=== PATIENT | male | born 1975 | race Caucasian/White ===

== ENCOUNTER 2021-05-13 08:20 | Inpatient (IN) | payer OTHER ==
[~2021-05-13] VITALS: Ht 182.9 cm; Wt 76.2 kg
[2021-05-13 08:41] VITALS: BP 129/66
[2021-05-13 09:12] LABS: BE(vivo) -1.7 mmol/L (-2 to +3); HCO3 20.7 mmol/L (22.0-26.0); PCO2 29.7 mmHg (35.0-45.0); PO2 64.8 mmHg (80.0-100.0); pH 7.461 (7.360-7.450)
[2021-05-13 09:18] LABS: ABSOLUTE NEUTROPHILS 4.6 thou/uL (1.4-8.2); HEMATOCRIT 43.9 % (42.0-52.0); HEMOGLOBIN 15.7 gm/dL (14.0-18.0); LYMPHOCYTES 11.1 % (24.0-44.0); MCH 32.6 pg (26.0-34.0); MCHC 35.8 g/dL (28.0-37.0); MCV 91.2 fL (80.0-100.0); MONOCYTES 5.5 % (1.0-8.0); PLATELET COUNT 133 thou/uL (150-400); POLYS 82.4 % (36.0-66.0); RBC 4.81 mil/uL (4.50-6.00); RDW 13.6 % (10.5-14.5); WBC 5.6 thou/uL (4.0-11.0)
[2021-05-13 09:27] LABS: CALCIUM 7.8 mg/dL (8.5-10.1); CREATININE 1.3 mg/dL (0.7-1.3); POTASSIUM 3.6 mmol/L (3.5-5.1)
[2021-05-13 09:37] LABS: ALBUMIN 2.9 g/dL (3.4-5.0); TOTAL BILIRUBIN 0.6 mg/dL (0.2-1.0); TOTAL PROTEIN 6.5 g/dL (6.4-8.2)
[2021-05-13 10:07] LABS: PLATELET ESTIMATE NORMAL
[2021-05-13 12:04] LABS: URINE BILIRUBIN NEGATIVE (Negative); URINE BLOOD 2+ (Negative); URINE CLARITY CLEAR; URINE COLOR YELLOW; URINE GLUCOSE-RANDOM* NEGATIVE (Negative); URINE KETONES NEGATIVE (Negative); URINE LEUKOCYTES-REFLEX NEGATIVE (Negative); URINE NITRITE-REFLEX NEGATIVE (Negative); URINE PROTEIN (DIPSTICK) 2+ (Negative); URINE UROBILINOGEN 0.2 E.U./dl (0.2-1.0)
--- NOTE | 2021-05-13 12:10 | EKG ---
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
[2021-05-13 12:23] LABS: BACTERIA-REFLEX 1-9 Few /HPF (None Seen); CRYSTALS None Seen /LPF (None Seen); HYALINE CASTS 0-3 Few /LPF (None Seen); SQUAMOUS 0-3 Few /LPF (0-3); URINE RBC 1-2 Rare /HPF (NONE SEEN); URINE WBC-REFLEX 0-5 Rare /HPF (0-5)
[2021-05-13] MEDS ORDERED: NOHOMEMEDICATIONS (23:16)
[2021-05-14] VITALS (39 sets, daily range): BP systolic 104–153; BP diastolic 44–84
[2021-05-14 00:08] LABS: BE(vivo) -2.3 mmol/L (-2 to +3); HCO3 20.3 mmol/L (22.0-26.0); PCO2 29.9 mmHg (35.0-45.0); sO2 88.8 % (92.0-98.0)
[2021-05-14 00:09] LABS: PO2 51.9 mmHg (80.0-100.0)
--- NOTE | 2021-05-14 01:12 | NUR ---
ASSUMED CARE OF PATIENT AT 1900. PATIENT ON OPTIFLOW. STATED HE HAD A COUGH. ASSESSED AND MEDS PASSED. CALLED METAL SHEET ROLLER OPERATOR FOR ORDERS FOR COUGH AND ANXIETY. AT THIS POINT PATIENT STARTED TO BECOME INCREASINGLY TACHYPNIC, AND DESATTED INTO MID 80'S. ORDERS RECIEVED FOR ABG. PATIENT PLACED ON BIPAP BASED ON ABG RESULTS. DR LOGAN AND ANDRESSA HURTADO UPDATED, ORDERS RECIEVED FOR ICU STATUS. INFORMATION SYSTEMS CONSULTANT CONTACTED, AND ER CHARGE NURSE UPDATED. REPEAT ABG'S TO BE DRAWN. PATIENT'S UPDATED ON STATUS AND POC.
[2021-05-14 01:31] LABS: BE(vivo) -2.5 mmol/L (-2 to +3); HCO3 19.9 mmol/L (22.0-26.0); PCO2 28.6 mmHg (35.0-45.0); sO2 95.8 % (92.0-98.0)
--- NOTE | 2021-05-14 03:23 | NUR ---
PT ADMITTED TO ICU ROM ER AT 0230. PT TESTED POSITIVE FOR COVID 05/13/21. PT IS ON THE BIPAP WITH SETINGS 16/01 RATE 18 FIO2 100%. PULM IS AWARE. FAMILY WAS NOTIFIED WHEN PATIENT GOT TO THE ICU. PATIENT ALERT AND ORIENTED. STRONG NON PRODUCTIVE COUGH. CALLED ID FOR CONSULT.
[2021-05-14 05:27] LABS: HEMOGLOBIN 14.5 gm/dL (14.0-18.0); MCH 32.8 pg (26.0-34.0); MCHC 36.4 g/dL (28.0-37.0); MCV 90.1 fL (80.0-100.0); RBC 4.44 mil/uL (4.50-6.00); RDW 13.8 % (10.5-14.5)
[2021-05-14 05:52] LABS: BE(vivo) -0.3 mmol/L (-2 to +3); HCO3 22.5 mmol/L (22.0-26.0); PO2 60.9 mmHg (80.0-100.0); pH 7.465 (7.360-7.450); sO2 92.9 % (92.0-98.0)
[2021-05-14 05:54] LABS: ALBUMIN 2.4 g/dL (3.4-5.0); CALCIUM 7.6 mg/dL (8.5-10.1); CREATININE 1.1 mg/dL (0.7-1.3); TOTAL BILIRUBIN 0.4 mg/dL (0.2-1.0)
--- NOTE | 2021-05-14 13:48 | NUR ---
PT ARRIVED FROM THE ER DURING GAS EXAMINER, AT THE TIME OF RN's FIRST ARRIVAL PT WAS SATTING NEAR 90s ON THE BIPAP MACHINE AT 100% RN LATER DISCUSSED AND GAVE TEACHING ON GOALS OF CARE/PLAN OF CARE FOR THE PATIENT, PT VERBALIZED AGREEMENT W/ ENTHUSIASM TO PARTICIPATE MUCH TOLERATED. MEDICATION/GOALS OF CARE EDUCATION GIVEN TO PATIENT AND HIS WHO HAD CALLED. PT HAS BEEN TAUGHT TO PRONE AND WAS PRONING FROM 0800 TO 1200 AND WAS SATTING AT 99-100% IMMEDIATELY. WHEN PATIENT IS LYING ON HIS BACK PT'S O2 SAT IS CLOSER TO 90-92% CENTRAL LINE CATHETER AWAITING PLACEMENT FOR THE PATIENT. PT'S HAD WANTED TO DROP OFF PICTURES/ITEMS FOR THE PATIENT. RN PICKED IT UP FROM THE ER AND SENT IT OVER. ALL BELONGINGS ARE NOW WITH THE PATIENT,. NO COMPLAINTS FROM THE PT, PT TO PRONE BACK TO POSITION ONCE CENTRAL LINE INSERTION PROCEDURE IS COMPLETED.
--- NOTE | 2021-05-14 16:15 | NUR ---
CL PLACED FOR COVID+
[2021-05-15] VITALS (60 sets, daily range): BP systolic 87–151; BP diastolic 33–82
[2021-05-15 00:05] LABS: HIV ANTIBODY Non Reactive (Non Reactive)
[2021-05-15 05:19] LABS: ABSOLUTE NEUTROPHILS 6.6 thou/uL (1.4-8.2); BASOPHILS 0.1 % (0.0-2.0); HEMATOCRIT 38.8 % (42.0-52.0); HEMOGLOBIN 13.8 gm/dL (14.0-18.0); LYMPHOCYTES 9.1 % (24.0-44.0); MCH 32.6 pg (26.0-34.0); MCHC 35.6 g/dL (28.0-37.0); MCV 91.7 fL (80.0-100.0); MONOCYTES 9.1 % (1.0-8.0); PLATELET COUNT 229 thou/uL (150-400); POLYS 81.7 % (36.0-66.0); RBC 4.23 mil/uL (4.50-6.00); RDW 13.6 % (10.5-14.5); WBC 8.1 thou/uL (4.0-11.0)
[2021-05-15 05:26] LABS: BE(vivo) -0.3 mmol/L (-2 to +3); HCO3 22.4 mmol/L (22.0-26.0); PCO2 31.5 mmHg (35.0-45.0); PO2 88.7 mmHg (80.0-100.0); sO2 97.3 % (92.0-98.0)
[2021-05-15 05:26] LABS: ALBUMIN 2.2 g/dL (3.4-5.0); ANION GAP 8 mmol/L (7-16); BUN 22 mg/dL (7-18); CALCIUM 7.6 mg/dL (8.5-10.1); CHLORIDE 106 mmol/L (98-107); CO2 26 mmol/L (21-32); CREATININE 0.9 mg/dL (0.7-1.3); DIRECT BILIRUBIN < 0.1 mg/dL (<0.1-0.2); GLUCOSE 149 mg/dL (74-106); PHOSPHORUS 2.5 mg/dL (2.5-4.9); POTASSIUM 4.3 mmol/L (3.5-5.1); SGOT 72 U/L (15-37); SGPT 40 U/L (30-65); SODIUM 140 mmol/L (136-145); TOTAL BILIRUBIN 0.3 mg/dL (0.2-1.0); TOTAL PROTEIN 5.5 g/dL (6.4-8.2)
--- NOTE | 2021-05-15 05:42 | NUR ---
PT FIO2 DROPPED TO 90% AROUND 0200. PAIENT SELF PRONING AND DOING A GOOD JOB OF THAT. WILL CONTINUE TO WEAN OXYGEN TOLERATED.
--- NOTE | 2021-05-15 17:03 | NUR ---
PT ADMITTED RELATED TO COVID AND HYPOXIA. CM REVIEWED CHART AND SPOKE WITH CARE TEAM. CM CALLED AND SPOKE WITH PT'S SPOUSE DESMOND BETTS. SHE INDICATED THAT THEY RESIDE IN A HOUSE WITH 1-2 STEPS TO ENTER AND NONE INSIDE. 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 SHE INDICATED THAT PT RECENTLY MOVED HERE FROM [place]. SHE INDICATED THAT PT PROBABLY HASN'T SEEN A PHYSICIAN IN 10 YRS. PT IS A VET BUT NOT SERVICE CONNECTED. SPOUSE INDICATED THAT PT'S ISN'T EMPLOYED IN THE COMMUNITY AT THIS TIME PT IS PATIENT PAY. PT IS ON BIPAP AT 90% PRONING. PT AND SPOUSE ARE FACETIMING. CM FOLLOWING REGARDING DC PLANNING.
--- NOTE | 2021-05-15 18:29 | NUR ---
PT IS PROGRESSING TOWARDS DISCHARGE AT THIS TIME AEB, BETTER APPEARANCE OVERALL, PT REMAINS STRONG AND ABLE TO TURN SELF FROM STOMACH TO THE R SIDE. PT INSTRUCTED BY RN TO LAY ON R SIDE WHEN NOT PRONING TO OPTIMIZE DELIVERY OF OXYGEN. PT IS TOLERATING PO ENSURE AND IS ABLE TO WITHSTAND BEING OFF THE BIPAP <45 SEC TO DRINK THE ROUTINE ENSURE FOR NUTRITION AND WIPE THE FACE DOWN. CALLED TWICE THIS SHIFT, RN PROVIDED UPDATE, VERBALIZED GRATITUDE. PT STATED CONTENT WITH CARE BEING PROVIDED, HOPEFUL PT CAN CONTINUE TO DECREASE IN BIPAP SETTINGS FROM HERE
[2021-05-16] VITALS (73 sets, daily range): BP systolic 114–159; BP diastolic 51–90
[2021-05-16 05:18] LABS: ABSOLUTE NEUTROPHILS 8.4 thou/uL (1.4-8.2); BASOPHILS 0.4 % (0.0-2.0); HEMATOCRIT 39.5 % (42.0-52.0); HEMOGLOBIN 14.1 gm/dL (14.0-18.0); LYMPHOCYTES 7.7 % (24.0-44.0); MCHC 35.7 g/dL (28.0-37.0); MCV 92.4 fL (80.0-100.0); PLATELET COUNT 215 thou/uL (150-400); POLYS 81.9 % (36.0-66.0); RBC 4.27 mil/uL (4.50-6.00); RDW 13.6 % (10.5-14.5); WBC 10.3 thou/uL (4.0-11.0)
[2021-05-16 05:33] LABS: ALBUMIN 2.3 g/dL (3.4-5.0); CALCIUM 7.6 mg/dL (8.5-10.1); CREATININE 0.9 mg/dL (0.7-1.3); DIRECT BILIRUBIN 0.2 mg/dL (<0.1-0.2); PHOSPHORUS 3.3 mg/dL (2.5-4.9); POTASSIUM 4.3 mmol/L (3.5-5.1); TOTAL BILIRUBIN 0.6 mg/dL (0.2-1.0); TOTAL PROTEIN 5.6 g/dL (6.4-8.2)
--- NOTE | 2021-05-16 14:06 | NUR ---
SPOKE WITH PATIENT , FADUMO, TODAY VIA TELEPHONE. DISCUSSED WAYS TO SUPPORT PATIENT VIRTUALLY BY CALLING ON FACETIME AT LEAST 1X PER DAY AND PROVIDE ENCOURAGEMENT AND SUPPORT.
--- NOTE | 2021-05-16 15:46 | NUR ---
DIET CHANGED TO NPO EXCEPT FOR SIP W/ BARICITINIB PER DR. DAMON. PO FLUIDS REMOVED FROM BEDSIDE TABLE. POC DISCUSSED WITH PT, TPN STARTED. WHEN REMOVING BIPAP MASK FOR <30 SEC, PT DESATURATES TO ~60% SPO2.
--- NOTE | 2021-05-16 17:06 | NUR ---
CM REVIEWED CHART AND SPOKE WITH NURSE. PT'S CARE DISCUSSED DURING ICU ROUNDS THIS DAY. CARE TEAM INDICATED PT CONTINUES ON BIPAP. PT WAS INITIATED ON TPM THIS AFTERNOON. CM FOLLOWING.
[2021-05-17] VITALS (41 sets, daily range): BP systolic 117–155; BP diastolic 60–105
--- NOTE | 2021-05-17 05:49 | NUR ---
ASSESSMENTS CHARTED, MEDS CHARTED GIVEN. PATIENT UNABLE TO LAY PRONE DUE TO PAIN, ALTERNATING LAYING SIDE TO SIDE. PATIENT ABLE TO REPOSITION HIMSELF. ON BIPAP DURING SHIFT. PATIENT NPO, TPN BEING GIVEN AND PO MEDS CHANGED TO IV SO PATIENT KEEPS THE BIPAP IN PLACE. PLAN OF CARE TO CONTINUE TREATMENTS.
[2021-05-17 06:42] LABS: HEMATOCRIT 40.6 % (42.0-52.0); HEMOGLOBIN 14.1 gm/dL (14.0-18.0); MCH 32.1 pg (26.0-34.0); MCHC 34.8 g/dL (28.0-37.0); MCV 92.1 fL (80.0-100.0); RBC 4.41 mil/uL (4.50-6.00); RDW 13.5 % (10.5-14.5); WBC 14.7 thou/uL (4.0-11.0)
[2021-05-17 07:02] LABS: ALBUMIN 2.3 g/dL (3.4-5.0); CALCIUM 7.7 mg/dL (8.5-10.1); CREATININE 0.8 mg/dL (0.7-1.3); DIRECT BILIRUBIN 0.2 mg/dL (<0.1-0.2); PHOSPHORUS 3.6 mg/dL (2.5-4.9); POTASSIUM 4.4 mmol/L (3.5-5.1); TOTAL BILIRUBIN 0.7 mg/dL (0.2-1.0); TOTAL PROTEIN 5.7 g/dL (6.4-8.2)
--- NOTE | 2021-05-17 13:47 | NUR ---
RN SPOKE WIH PT SPOUSE THIS MORNING. PT SPOUSE STATED THAT PT WOULD LIKE TO MOVE AROUND AND NOT USE A BEDPAN AGAIN. RN SPOKE WITH PT AND DISSCUSSED THESE CONCERNS. PT WAS COOPERATIVE AND WE DECIDED ON A PLAN. RN AND RT SAT PT UP TO SIDE OF THE BED. PT THEN WANTED TO STAND, PT STOOD AND WAS A LITTLE WOBBLY. ASIST X 1 FOR STANDING. RN GOT PT A BEDSIDE COMMODE.
[2021-05-17 14:10] LABS: T-SPOT.TB Negative
[2021-05-17 18:30] LABS: HEMATOCRIT 42.4 % (42.0-52.0); HEMOGLOBIN 14.9 gm/dL (14.0-18.0); RBC 4.6 mil/uL (4.50-6.00); WBC 21.3 thou/uL (4.0-11.0)
[2021-05-17 20:46] LABS: MCH 32.3 pg (26.0-34.0); MCHC 35.1 g/dL (28.0-37.0); MCV 92.1 fL (80.0-100.0); RDW 13.2 % (10.5-14.5)
[2021-05-17 21:16] LABS: BE(vivo) 3.7 mmol/L (-2 to +3); HCO3 26.9 mmol/L (22.0-26.0); PCO2 36.3 mmHg (35.0-45.0); PO2 73.8 mmHg (80.0-100.0); pH 7.488 (7.360-7.450); sO2 95.9 % (92.0-98.0)
[2021-05-18] VITALS (45 sets, daily range): BP systolic 81–189; BP diastolic 45–121
[2021-05-18 03:34] LABS: HEMATOCRIT 41.5 % (42.0-52.0); HEMOGLOBIN 14.5 gm/dL (14.0-18.0); MCH 32.3 pg (26.0-34.0); MCHC 34.9 g/dL (28.0-37.0); MCV 92.6 fL (80.0-100.0); RBC 4.49 mil/uL (4.50-6.00); WBC 19.4 thou/uL (4.0-11.0)
[2021-05-18 03:43] LABS: CREATININE 0.9 mg/dL (0.7-1.3); POTASSIUM 4.4 mmol/L (3.5-5.1)
[2021-05-18 07:59] LABS: ALBUMIN 2.3 g/dL (3.4-5.0); CALCIUM 7.9 mg/dL (8.5-10.1); DIRECT BILIRUBIN 0.3 mg/dL (<0.1-0.2); PHOSPHORUS 4.1 mg/dL (2.6-4.7); TOTAL BILIRUBIN 0.9 mg/dL (0.2-1.0)
--- NOTE | 2021-05-18 12:15 | NUR ---
VERY LONG D/W FADUMO HATFILED, (30 MINUTES). ALLOWED TO VERBALIZE FRUSTRATIONS/FEARS. D/W HER WHAT HER EXPECTATIONS RE:PT/PROGNISIS WAS. LONG D/W HER RE:POC, PT NOT HAVING RESERVE,TAKING LONGER TIMES TO RECOVER W ANY MOVEMENT OR ADL ATTEMPTED.SHE STATES THAT THE SATURDAY THAT PT WAS ADMITTED, p taking a shower, his pulse ox was .78%. 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 STATED PT TAKES 0.5-1MG XANAX DAILY & PRN. SHE FELT HE WAS PANICKING THIS AM WHEN FACETIMING W PT.PT'S MOM IS CO VID + IN AN ICU IN [place], NOT DOING WELL.--VW
--- NOTE | 2021-05-18 13:57 | NUR ---
just off the phone w pt's philip (time spent ~8 minutes). in to see pt earlier,told pt he needed to be intubated (satting ~83-86% at rest). pt refusing intubation. asked to call earlier & stated he would d/w pt first & call p intubation. now in procedure w another pt. very frustrated & upset.tried to calm fears,answer ?'s.--vw
--- NOTE | 2021-05-18 15:04 | NUR ---
RN SPOKE WITH PT. PT STATED HE IS READY TO BE INTIBATED. PT IS ANXIOUS ABOUT INTIBATION BUT DID GIVE VERBAL CONSENT THAT IF APPROPRIATE HE IS OK WITH INTIBATION. RN CALLED DR LOGAN AT 1447, NO ANSWER. SENT DR LOGAN A MESSAGE STATING PT WAS READY FOR INTIBATION AND WOULD LIKE SOMETHING FOR ANXIETY BEFORE HE GETS INTIBATED. RN WILL CONTINUE TO MONITOR.
--- NOTE | 2021-05-18 16:45 | NUR ---
PT HAD BEEN ON BIPAP AT 100% AND WAS INTUBATED LATE THIS AFTERNOON. A KUB WAS ALSO ORDERED. CM FOLLOWING.
--- NOTE | 2021-05-18 18:24 | NUR ---
PT INTUBATED AT 1530. DR LOGAN INTUBATED PT. SUCCESSFUL INTUBATION. RN WENT TO PLACE OG TUBE FOR XR. COMPLICATIONS PLACING OG TUBE, REQUIRED REINTUBATION. PT SEDATED AND INTUBATED AND SATTING 93%. ANTONIO CATHETER WAS PLACED. PT SPOUSE WAS UPDATED ON PT CONDITION. WAS VERY POLITE AND RECEPTIVE TO PATIENT CARE. WILL CONTINUE TO MONITOR AND FOLLOW PLAN OF CARE
[2021-05-18 21:04] LABS: BE(vivo) 0.8 mmol/L (-2 to +3); HCO3 27.4 mmol/L (22.0-26.0); PCO2 50.7 mmHg (35.0-45.0); PO2 121.3 mmHg (80.0-100.0); pH 7.351 (7.360-7.450); sO2 98.2 % (92.0-98.0)
[2021-05-19] VITALS (89 sets, daily range): BP systolic 95–133; BP diastolic 49–83
[2021-05-19 04:24] LABS: BE(vivo) -0.9 mmol/L (-2 to +3); HCO3 28.3 mmol/L (22.0-26.0); PO2 157.8 mmHg (80.0-100.0); sO2 98.7 % (92.0-98.0)
[2021-05-19 04:25] LABS: PCO2 66.5 mmHg (35.0-45.0); pH 7.247 (7.360-7.450)
[2021-05-19 06:06] LABS: HEMATOCRIT 43.7 % (42.0-52.0); MCH 32.5 pg (26.0-34.0); MCHC 34.3 g/dL (28.0-37.0); MCV 94.9 fL (80.0-100.0); RDW 13.5 % (10.5-14.5); WBC 19.9 thou/uL (4.0-11.0)
[2021-05-19 06:36] LABS: ALBUMIN 2.2 g/dL (3.4-5.0); CALCIUM 7.7 mg/dL (8.5-10.1); CREATININE 1.1 mg/dL (0.7-1.3); DIRECT BILIRUBIN 0.4 mg/dL (<0.1-0.2); POTASSIUM 5.8 mmol/L (3.5-5.1); TOTAL BILIRUBIN 0.7 mg/dL (0.2-1.0); TOTAL PROTEIN 6.5 g/dL (6.4-8.2)
[2021-05-19 06:44] LABS: APTT 50.4 Seconds (24.5-32.8); D-DIMER > 35.20 ug/mLFEU (0.19-0.50)
[2021-05-19 10:23] LABS: ABSOLUTE NEUTROPHILS 17.7 thou/uL (1.4-8.2)
[2021-05-19 10:25] LABS: PLATELET COUNT 78 thou/uL (150-400)
[2021-05-19 12:07] LABS: ATYPICAL LYMPHS 0 %
--- NOTE | 2021-05-19 15:15 | NUR ---
Case discussed with the care team. No weekend dc anticipated. Pt is intubated and sedated FiO2 60% PEEP of 12. PT had been on TPN but is now changing to tube feeds. Dc planning needs uncertain at this time. Nursing updating his . Will follow.
--- NOTE | 2021-05-19 19:47 | NUR ---
PT FS 200. MD DESMOND STATES TO ORDER SLIDING SCALE MD WILL ORDER.
[2021-05-20] VITALS (91 sets, daily range): BP systolic 95–126; BP diastolic 55–72
[2021-05-20 01:49] LABS: ABSOLUTE NEUTROPHILS 18.6 thou/uL (1.4-8.2); BASOPHILS 0.3 % (0.0-2.0); HEMATOCRIT 41.7 % (42.0-52.0); HEMOGLOBIN 14.1 gm/dL (14.0-18.0); LYMPHOCYTES 1.4 % (24.0-44.0); MCH 32.2 pg (26.0-34.0); MCHC 33.7 g/dL (28.0-37.0); MCV 95.6 fL (80.0-100.0); MONOCYTES 6.1 % (1.0-8.0); PLATELET COUNT 43 thou/uL (150-400); POLYS 92.2 % (36.0-66.0); RBC 4.37 mil/uL (4.50-6.00); RDW 13.6 % (10.5-14.5); WBC 21.3 thou/uL (4.0-11.0)
[2021-05-20 01:53] LABS: CALCIUM 7.6 mg/dL (8.5-10.1); CREATININE 1.6 mg/dL (0.7-1.3); DIRECT BILIRUBIN 0.4 mg/dL (<0.1-0.2); PHOSPHORUS 5.3 mg/dL (2.6-4.7); TOTAL BILIRUBIN 0.7 mg/dL (0.2-1.0); TOTAL PROTEIN 6.1 g/dL (6.4-8.2)
[2021-05-20 02:03] LABS: POTASSIUM 6.2 mmol/L (3.5-5.1)
[2021-05-20 04:10] LABS: BE(vivo) 1.6 mmol/L (-2 to +3); HCO3 31.4 mmol/L (22.0-26.0); PO2 91.6 mmHg (80.0-100.0); sO2 95.3 % (92.0-98.0)
[2021-05-20 04:11] LABS: PCO2 74.8 mmHg (35.0-45.0); pH 7.241 (7.360-7.450)
--- NOTE | 2021-05-20 05:20 | NUR ---
05/19/21, 1900: Assumed pt care. Pt sedated/intubated. 05/19/21, 0: pharmacy called this RN to titrate argatroban to 0.6mcg/kg/min following appt results 05/20/21, 0000: pt saturating above 80s. RT notified of pt's spo2 level. RT called provider and orders received. vent setting changed to pressure control of 30 and peep of 14. pt's saturation level improved after intervention 0202: critical potassium results received - CRUISE COORDINATOR notified of critical lab results.
[2021-05-20 21:46] LABS: CALCIUM 7.8 mg/dL (8.5-10.1)
[2021-05-20 21:53] LABS: POTASSIUM 6.2 mmol/L (3.5-5.1)
[2021-05-21] VITALS (81 sets, daily range): BP systolic 100–138; BP diastolic 49–84
[2021-05-21 04:52] LABS: HEMATOCRIT 39.8 % (42.0-52.0); HEMOGLOBIN 13.1 gm/dL (14.0-18.0); MCH 31.8 pg (26.0-34.0); MCHC 32.8 g/dL (28.0-37.0); MCV 96.9 fL (80.0-100.0); RBC 4.11 mil/uL (4.50-6.00); RDW 13.8 % (10.5-14.5); WBC 14.5 thou/uL (4.0-11.0)
[2021-05-21 05:17] LABS: ALBUMIN 1.9 g/dL (3.4-5.0); CALCIUM 7.5 mg/dL (8.5-10.1); DIRECT BILIRUBIN 0.3 mg/dL (<0.1-0.2); PHOSPHORUS 4.4 mg/dL (2.6-4.7); POTASSIUM 5.5 mmol/L (3.5-5.1); TOTAL BILIRUBIN 0.5 mg/dL (0.2-1.0); TOTAL PROTEIN 6.1 g/dL (6.4-8.2)
--- NOTE | 2021-05-21 06:02 | NUR ---
Pt is not progressing towards plan of care as evidenced by continued dependence on vent for oxygen support. Pt tolerated titration of propofol and fent to lower rates
[2021-05-21 11:33] LABS: HEMATOCRIT 37.6 % (42.0-52.0); HEMOGLOBIN 12.5 gm/dL (14.0-18.0); MCH 32.4 pg (26.0-34.0); MCHC 33.1 g/dL (28.0-37.0); MCV 97.6 fL (80.0-100.0); RBC 3.85 mil/uL (4.50-6.00); RDW 13.8 % (10.5-14.5); WBC 17.5 thou/uL (4.0-11.0)
[2021-05-21 13:06] LABS: ABSOLUTE NEUTROPHILS 15.8 thou/uL (1.4-8.2)
[2021-05-21 13:07] LABS: ANISOCYTOSIS SLIGHT
[2021-05-21 13:10] LABS: PLATELET COUNT 151 thou/uL (150-400)
[2021-05-21 17:45] LABS: CALCIUM 7.6 mg/dL (8.5-10.1); CREATININE 1.8 mg/dL (0.7-1.3); POTASSIUM 5.6 mmol/L (3.5-5.1)
[2021-05-22] VITALS (24 sets, daily range): BP systolic 96–130; BP diastolic 64–78
[2021-05-22 04:55] LABS: ALBUMIN 1.9 g/dL (3.4-5.0); CALCIUM 7.8 mg/dL (8.5-10.1); CREATININE 1.7 mg/dL (0.7-1.3); DIRECT BILIRUBIN 0.3 mg/dL (<0.1-0.2); PHOSPHORUS 2.9 mg/dL (2.5-4.9); POTASSIUM 5.1 mmol/L (3.5-5.1); TOTAL BILIRUBIN 0.6 mg/dL (0.2-1.0)
[2021-05-22 05:08] LABS: HEMATOCRIT 38.8 % (42.0-52.0); HEMOGLOBIN 12.9 gm/dL (14.0-18.0); MCH 32.3 pg (26.0-34.0); MCHC 33.3 g/dL (28.0-37.0); MCV 96.8 fL (80.0-100.0); RDW 13.4 % (10.5-14.5); WBC 20.7 thou/uL (4.0-11.0)
--- NOTE | 2021-05-22 07:12 | NUR ---
No progress toward goals at this time, though pt remains stable. Remains on FiO2 70%, PC 30, AC 22, peep 14. O2 sat remains > 90%. No fever, though WBC count this a.m. is up to 20.7. Pt still screens negative for sepsis. Lungs remain coarse, suctioning small amounts of thick blood tinged, gongora sputum. Skin integrity remains intact except for small dry skin tear by RAC.
--- NOTE | 2021-05-22 13:43 | NUR ---
Cm reviewed chart and spoke with Nurse this day. Pt's care was discussed druing ICU rounds this day. Care team indicated that pt continues on Dexamethasone, Remdesivir complete, baricitinib Vancomycin, Azithromycin, Cefepime, Valtrex Pt is sedated and intubated. Fi02 70%/PEEP 14. Pt started on Levophed. Pt's spouse Breanna called cm this day and express frustration with the length of time she has been on hold to touch base with the nurses in the recent past at most up to 38 mins. She indicated she had only spoken to a doctor once since his admission. Luis Fernando indicated that luis fernando would ask if hospitalist will call and provide her an update this day. Luis Fernando spoke with Dr. Escudero and he stated he would call her after her visited pt this afternoon. Cm following.
--- NOTE | 2021-05-22 14:15 | NUR ---
PT HR IN 120S. DR BETANCOURT NOTIFIED AT BEDSIDE OF INCREAING HR. DR BETANCOURT ORDER ECG. ECG STATED SINUS TACH. RN INFORMED DR BETANCOURT ABOUT ECG RESULTS. PT SATTING 90% AND BP 96/72. PT SEDATED AND INTUBATED. WILL CONTINUE TO [facility] AND FOLLOW PLAN OF CARE.
--- NOTE | 2021-05-22 15:34 | EKG ---
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: PEYMAN : 1975 Requested By: Jimmy Escudero Order Number: [id number] MD: Tod Hood Measurements Intervals [place] Rate: 117 P: 46 KS: 132 QRS: 34 QRSD: 121 T: 37 QT: 330 QTc: 461 Interpretive Statements Sinus tachycardia IVCD, consider atypical RBBB Nonspecific T abnormalities, lateral leads Compared to ECG 05/13/2021 08:49:47 T-wave abnormality now present Electronically Signed On 05-22-2021 15:34:27 ALLEY WORKER by Tod Hood [email or web address] <ELECTRONICALLY SIGNED> By: Tod Hood MD, [facility] 05/22/21 1534 1347 1347 Tod Hood MD, FAC /EPI
[2021-05-23] VITALS (24 sets, daily range): BP systolic 101–128; BP diastolic 57–76
[2021-05-23 03:44] LABS: HEMATOCRIT 35.3 % (42.0-52.0); HEMOGLOBIN 11.5 gm/dL (14.0-18.0); MCHC 32.7 g/dL (28.0-37.0); MCV 97.7 fL (80.0-100.0); RBC 3.61 mil/uL (4.50-6.00); RDW 13.8 % (10.5-14.5); WBC 20.5 thou/uL (4.0-11.0)
[2021-05-23 03:54] LABS: CALCIUM 7.8 mg/dL (8.5-10.1); CREATININE 1.7 mg/dL (0.7-1.3); POTASSIUM 5.3 mmol/L (3.5-5.1)
--- NOTE | 2021-05-23 16:02 | NUR ---
Cm reviewed chart and spoke with nurse. Pt's care was discussed during ICU rounds this day. Pt remains sedated on vent fio2 at 80% peep of 14. Pt's tube feeding was changed to nepro. Luis Fernando had asked Dr. Escudero to reach out to pt's spouse Breanna yesterday. Cm following.
--- NOTE | 2021-05-23 18:05 | NUR ---
PT PROGRESSING TOWARD POC AEB LIS VIAL SIGNS AND MAINTAININ OXGENATON. PT ON 80% FIO2 AND 14 OF PEEP. PT ON 100 OF FENTAYL, 6 O VERSED, AND 20 OF PROPOFOL FOR SEDATION. P WAS ABLE TO FACEIME PT AND SPEAK TO HIM.
[2021-05-24] VITALS (24 sets, daily range): BP systolic 111–139; BP diastolic 61–77
[2021-05-24 02:00] LABS: CREATININE 1.6 mg/dL (0.7-1.3); POTASSIUM 5.6 mmol/L (3.5-5.1)
[2021-05-24 15:30] LABS: BE(vivo) -2.5 mmol/L (-2 to +3); PCO2 48.3 mmHg (35.0-45.0); PO2 80.9 mmHg (80.0-100.0); pH 7.314 (7.360-7.450); sO2 94.9 % (92.0-98.0)
[2021-05-25] VITALS (19 sets, daily range): BP systolic 103–145; BP diastolic 58–78
[2021-05-25 03:08] LABS: HEMATOCRIT 34.9 % (42.0-52.0); HEMOGLOBIN 11.7 gm/dL (14.0-18.0); MCH 32.6 pg (26.0-34.0); MCHC 33.4 g/dL (28.0-37.0); MCV 97.4 fL (80.0-100.0); RBC 3.58 mil/uL (4.50-6.00); RDW 13.5 % (10.5-14.5); WBC 17.4 thou/uL (4.0-11.0)
[2021-05-25 03:56] LABS: CREATININE 1.5 mg/dL (0.7-1.3); POTASSIUM 5.2 mmol/L (3.5-5.1)
--- NOTE | 2021-05-25 12:58 | NUR ---
NURSE ATEMPTED TO PRONE PATIENT PER ORDER. PT DID NOT TOLERATE PRONE ATTMEPT. DR ORDERED NIMBEX TO PARALYZE PATIENT. NURSE ADMINISTERED AND ATTEMPTED TO PRONE PATIENT AGAIN. PT STILL DID NOT TOLERATE PRONING EVIDENCE BY DESATURATION AND INCREASE RESPIRATORY RATE.
--- NOTE | 2021-05-25 14:22 | NUR ---
Cm reviewed chart and spoke with nurse. Pt's care discussed during icu rounds this day. It was indicated that pt continues on Dexamethasone, baricitinib day 13, Ceftriaxone, Valtrex. Pt remains sedated and ntubated. Fi02 65% PEEP 12. Planning on prone positioning today. Cm following.
[2021-05-26] VITALS (17 sets, daily range): BP systolic 102–148; BP diastolic 53–85
[2021-05-26 05:07] LABS: HEMATOCRIT 33.2 % (42.0-52.0); MCH 32.1 pg (26.0-34.0); MCHC 33.1 g/dL (28.0-37.0); MCV 96.9 fL (80.0-100.0); RBC 3.43 mil/uL (4.50-6.00); RDW 13.7 % (10.5-14.5); WBC 14.3 thou/uL (4.0-11.0)
[2021-05-26 08:42] LABS: ALBUMIN 1.7 g/dL (3.4-5.0); CALCIUM 8.8 mg/dL (8.5-10.1); CREATININE 1.5 mg/dL (0.7-1.3); PHOSPHORUS 3.7 mg/dL (2.5-4.9); POTASSIUM 4.9 mmol/L (3.5-5.1)
[2021-05-27] VITALS (27 sets, daily range): BP systolic 96–203; BP diastolic 56–104
[2021-05-27 05:41] LABS: HEMATOCRIT 33.2 % (42.0-52.0); HEMOGLOBIN 11.3 gm/dL (14.0-18.0); MCH 32.7 pg (26.0-34.0); MCHC 34.1 g/dL (28.0-37.0); MCV 95.9 fL (80.0-100.0); RBC 3.46 mil/uL (4.50-6.00); RDW 13.2 % (10.5-14.5); WBC 12.1 thou/uL (4.0-11.0)
--- NOTE | 2021-05-27 18:46 | NUR ---
PATIENT STARTED COUGH IN SEDATION WAS TURNED UP. WHEN SEDATION WAS TURNED UP 02 WENT DOWN AND RT WAS CALLED TO TURN UP 02. START TO TURN DOWN SEDATION. TALKED TO PATIENTS ON THE PHONE. PATIENT IS RESTING IN BED.
[2021-05-28] VITALS (24 sets, daily range): BP systolic 107–139; BP diastolic 59–79
[2021-05-28 04:37] LABS: CALCIUM 9.2 mg/dL (8.5-10.1); CREATININE 1.4 mg/dL (0.7-1.3); POTASSIUM 4.7 mmol/L (3.5-5.1)
[2021-05-29] VITALS (23 sets, daily range): BP systolic 102–165; BP diastolic 57–96
--- NOTE | 2021-05-29 06:46 | NUR ---
PATIETNT HAD UNEVENTFUL NIGHT. MAINTAINING 02 SATS 97-98% ALL NOC. PRECEDEX, FENTANYL, AND VERSED GTT. +COUGH/GAG, FOLLOWS SOME COMMANDS - SQUEEZES HAND. 02 SATs HIGH 90s ALL NOC. SR ON THE MONITOR. OGT WITH TUBE FEED AND HIGH RESID MAX WAS 225 CCs. WILL CONTINUE TO MONITOR AND FOLLOW POC .
--- NOTE | 2021-05-29 06:48 | NUR ---
SPOKE WITH SPOUSE THIS MORNING AND UPDATED ON PATIENT STATUS. ALL QUESTIONS WERE ANSWERED DURING THE CALL.
--- NOTE | 2021-05-29 19:10 | NUR ---
PT REPEATEDLY COUGHING, TEMP 102.7, TYLENOL GIVEN AND ICE PLACE, PT TACHYCARDIC 150. PT RULED IN FOR SEPSIS, DISCUSS THIS W/ MD LOGAN. SEDATION MAXED AND PHILIPPE CULTURED. PT OFF ISOLATION WITFE AT BEDSIDE. IS AMICABLE TO TRACH/PEG WHEN READY.
[2021-05-30] VITALS (11 sets, daily range): BP systolic 104–119; BP diastolic 58–75
[2021-05-30 05:04] LABS: ABSOLUTE NEUTROPHILS 16.9 thou/uL (1.4-8.2); BASOPHILS 0.1 % (0.0-2.0); EOSINOPHILS 0.1 % (0.0-3.0); HEMATOCRIT 31.3 % (42.0-52.0); HEMOGLOBIN 10.6 gm/dL (14.0-18.0); LYMPHOCYTES 4.1 % (24.0-44.0); MCH 32.4 pg (26.0-34.0); MCV 95.5 fL (80.0-100.0); MONOCYTES 2.6 % (1.0-8.0); PLATELET COUNT 178 thou/uL (150-400); POLYS 93.1 % (36.0-66.0); RBC 3.28 mil/uL (4.50-6.00); RDW 13.4 % (10.5-14.5); WBC 18.2 thou/uL (4.0-11.0)
[2021-05-30 05:10] LABS: ALBUMIN 1.7 g/dL (3.4-5.0); CALCIUM 8.4 mg/dL (8.5-10.1); CREATININE 1.5 mg/dL (0.7-1.3); TOTAL BILIRUBIN 0.7 mg/dL (0.2-1.0); TOTAL PROTEIN 6.2 g/dL (6.4-8.2)
--- NOTE | 2021-05-30 05:40 | NUR ---
PT PROGRESSING TOWARD PLAN OF CARE EVIDENCED BY DECREASED OXYGENA REQUIREMENTS. AT 1900, RT FOUND ETT HAD MOVED 5CM FROM ORIGINAL POSITION. DURING SHIFT REPORT, THIS RN WAS TOLD PATIENT WAS REQUIRING 100% FIO2. ONCE ETT WAS REPOSITIONED TO IT'S INITIAL POSITION, PATIENT'S O2 SAT INCREASED TO 100% ALLOWING THIS RN TO TITRATE OXYGEN DOWN OVERNOC. PATIENT'S FIO2 TITRATED TO 65% FROM 100%. PATIENT HAD BM DURING SHIFT. 02 SAT REMAINED IN MID-HIGH 90s THROUGHOUT SHIFT. PATIENT CONTINUES TO REQUIRE SEDATION WITHOUT RESTRAINT ORDER. ANTONIO OUTPUT TOTAL 1000 ML. PER ID ORDER, ABX IVPB STARTED. PATIENT AFREBILE THROUHGOUT SHIFT. WILL CONTINUE TO MONITOR AND FOLLOW POC.
[2021-05-30 09:19] LABS: HCO3 27.8 mmol/L (22.0-26.0); PCO2 48.5 mmHg (35.0-45.0); PO2 72.2 mmHg (80.0-100.0); pH 7.376 (7.360-7.450); sO2 94.1 % (92.0-98.0)
--- NOTE | 2021-05-30 15:19 | NUR ---
PTS HAS BEEN AT HIS BEDSIDE OFF AND ON THROUGHOUT THE DAY. I HAVE ANSWERED ALL QUESTIONS PER POC.
[2021-05-31] VITALS (17 sets, daily range): BP systolic 110–137; BP diastolic 62–91
--- NOTE | 2021-05-31 07:36 | NUR ---
PATIENT FOLLOWS SOME COMMANDS, OPEN EYES WITH STIMULATION, AND NOT RESTRAINED. PATIENT CONTINUES TO REQUIRE HIGH LEVEL OF SEDATION TO PREVENT MOVEMENT OF THE ETT AGAIN. PATIENT WILL COUGH AND GAG WHEN AWAKE BUT WILL CALM DOWN A LITTLE WHEN REASSURED HE'S OK. PATIENT HAD LARGE BM AT BEGINNING OF SHIFT. TUBE FEED TITRATED UP TO 60 FROM 40 WITH A GOAL OF 70. PLAN IS FOR TRACH/PEG WITH FI02 AT 60%, WHICH IS GOAL FOR PROCEDURE. WILL CONTIUNE TO MONITOR AND FOLLOW POC.
--- NOTE | 2021-05-31 13:55 | NUR ---
Cm reviwed chart and spoke with nurse. Pt's care discussed during ICU rounds this day. Pt continues on Dexamethasone, Levaquin, Merropenem, Vancomycin, and Valtrex. Pt remains sedated and intubated, but arousable. Fi02 60%/PEEP 12. Pt is uninsured and pt's spouse is over assets for medicaid. She had reported that pt is a but he isn't service connected. Cm following.
--- NOTE | 2021-05-31 18:42 | NUR ---
MARIO WAS IN TO VISIT, HE MOVED HIS HEAD LOOKED AT HER. SQUEEZED HER HAND. PATIENT HAS NOT HAD A TEMP TODAY. PATIENT IS RESTING IN BED WITH CALL FIGUEROA IN REACH.
[2021-06-01] VITALS (12 sets, daily range): BP systolic 96–121; BP diastolic 60–78
--- NOTE | 2021-06-01 07:42 | EKG ---
[address] [address] ELECTROCARDIOGRAM REPORT Name: JOHANNA ARELLANO Room #: 239-P ADM IN M.R.#: [id number] Admission: 05/13/21 Attend Phys: Rahat Alvarado MD Discharge: Date of : 75 Report #: [id number] 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
--- NOTE | 2021-06-01 15:42 | NUR ---
61 year old male remains on vent for COVID-19 Pneumonia at 90% FI02 and 12 of Peep. No anticipated CM needs at this time. CM to follow when moving closer to discharge needs being identified.
--- NOTE | 2021-06-01 18:28 | NUR ---
PATIENT HAS REST COMFORTABLE ALL DAY. WAS IN TO SEE HIM. PATIENT IS NPO AT MIDNIGHT. PATIENT HAD 2 SMALL BM THIS SHIFT. PATINET IS RESTING IN BED.
[2021-06-02] VITALS (24 sets, daily range): BP systolic 96–118; BP diastolic 60–75
[2021-06-02 04:35] LABS: ABSOLUTE NEUTROPHILS 11.5 thou/uL (1.4-8.2); BASOPHILS 0.4 % (0.0-2.0); EOSINOPHILS 0.2 % (0.0-3.0); HEMATOCRIT 32.3 % (42.0-52.0); LYMPHOCYTES 5.7 % (24.0-44.0); MCH 32.1 pg (26.0-34.0); MCHC 34.1 g/dL (28.0-37.0); MCV 94.2 fL (80.0-100.0); MONOCYTES 3.9 % (1.0-8.0); PLATELET COUNT 158 thou/uL (150-400); POLYS 89.8 % (36.0-66.0); RBC 3.43 mil/uL (4.50-6.00); RDW 13.7 % (10.5-14.5); WBC 12.7 thou/uL (4.0-11.0)
[2021-06-02 04:36] LABS: BE(vivo) 7.1 mmol/L (-2 to +3); HCO3 31.8 mmol/L (22.0-26.0); PCO2 45.4 mmHg (35.0-45.0); PO2 62.9 mmHg (80.0-100.0); pH 7.463 (7.360-7.450); sO2 93.1 % (92.0-98.0)
[2021-06-02 05:08] LABS: CALCIUM 8.5 mg/dL (8.5-10.1); CREATININE 1.2 mg/dL (0.7-1.3); POTASSIUM 4.2 mmol/L (3.5-5.1); TOTAL BILIRUBIN 0.7 mg/dL (0.2-1.0); TOTAL PROTEIN 6.7 g/dL (6.4-8.2)
--- NOTE | 2021-06-02 08:42 | NUR ---
ASSUMED CARE OF PT AT [address] MALDONADO AT 0730 AND HE SAID HE IS CALLING ANESTHESIA TO SEE IF THEY CAN GET THE PT ON THE SCHEDULE TODAY FOR A TRACH AND PEG. DR. CHIRINOS AT BEDSIDE AT 0815, HE WANTS THE WATER FLUSHES DECREASED TO 100 BID
[2021-06-03] VITALS (24 sets, daily range): BP systolic 89–130; BP diastolic 58–83
--- NOTE | 2021-06-03 05:47 | NUR ---
NO SIGNIFICANT CHANGES DURING THE NIGHT. PT REMAINS SEDATED WITH PRECEDEX, FENTANYL, AND VERSED. FENTANYL DRIP INCREASED THIS MORNING, PT AWAKENED SPONTANEOUSLY AND WAS BECOMING RESTLESS IN THE BED. SPO2> 92% ON VENT WITH 50% FIO2. ANTONIO TO DD WITH GOOD URINE OUTPUT. MODERATE AMOUNT LOOSE STOOL NOTED IN FMS. TF VIA OGT. DECREASED TF RATE PT HAD RESIDUALS OF 100-200ML THIS SHIFT. NOT PROGRESSING WELL TOWARD POC GOALS. WILL MONITOR FURTHER.
--- NOTE | 2021-06-03 17:12 | NUR ---
1705: RN PAGED DR. LOGAN AT THIS TIME DUE TO INCREASED AGITATION AND ANXIETY. 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 PT ABLE TO NOD/SHAKE HEAD APPROPRIATELY, DENIES PAIN BUT ENDORSES ANXIETY. PT ALREADY MAXED ON DOSES OF FENTANYL, VERSED, AND PRECEDEX GTTS. DR. LOGAN TO PLACE ORDER FOR PROPOFOL.
--- NOTE | 2021-06-03 18:40 | NUR ---
PT CONTINUES TO PROGRESS ON PLAN OF CARE. PT CONTINUES ON CURRENT VENT SETTINGS WITHOUT CHANGE THIS SHIFT. PLAN FOR TRACH/PEG PLACEMENT SATURDAY. PT'S SPOUSE AT BEDSIDE MAJORITY OF AFTERNOON AND ABLE TO VERBALIZE UNDERSTANDING OF POC.
[2021-06-04] VITALS (25 sets, daily range): BP systolic 95–117; BP diastolic 56–73
[2021-06-04 04:33] LABS: BE(vivo) 7.7 mmol/L (-2 to +3); HCO3 31.6 mmol/L (22.0-26.0); PCO2 41.5 mmHg (35.0-45.0); PO2 72.2 mmHg (80.0-100.0); pH 7.499 (7.360-7.450); sO2 95.7 % (92.0-98.0)
--- NOTE | 2021-06-04 06:00 | NUR ---
VSS REMAINS INTUBATED AND SEDATED. PLAN FOR TRACH AND PEG ON MODAY AT 1300 PROGRESSIJNG TOWARD GOALS.
[2021-06-04 08:39] LABS: ABSOLUTE NEUTROPHILS 13.8 thou/uL (1.4-8.2); BASOPHILS 0.5 % (0.0-2.0); EOSINOPHILS 0.2 % (0.0-3.0); HEMATOCRIT 32.8 % (42.0-52.0); HEMOGLOBIN 11.4 gm/dL (14.0-18.0); MCH 32.8 pg (26.0-34.0); MCHC 34.7 g/dL (28.0-37.0); MCV 94.7 fL (80.0-100.0); MONOCYTES 3.2 % (1.0-8.0); PLATELET COUNT 169 thou/uL (150-400); POLYS 89.1 % (36.0-66.0); RBC 3.47 mil/uL (4.50-6.00); RDW 13.6 % (10.5-14.5); WBC 15.5 thou/uL (4.0-11.0)
[2021-06-04 08:49] LABS: ALBUMIN 2.2 g/dL (3.4-5.0); CALCIUM 8.8 mg/dL (8.5-10.1); CREATININE 1.2 mg/dL (0.7-1.3); POTASSIUM 4.7 mmol/L (3.5-5.1); TOTAL BILIRUBIN 0.6 mg/dL (0.2-1.0); TOTAL PROTEIN 6.2 g/dL (6.4-8.2)
[2021-06-04 09:01] LABS: PHOSPHORUS 3.8 mg/dL (2.5-4.9)
--- NOTE | 2021-06-04 19:24 | NUR ---
PT PROGRESSING ON CARE PLAN EVIDENCED BY CONTINUED STABILITY ON CURRENT VENT SETTINGS. PLAN FOR TRACH/PEG PLACEMENT TOMORROW. PT'S SPOUSE PRESENT THIS SHIFT AND VERBALIZES UNDERSTANDING OF POC.
[2021-06-05] VITALS (39 sets, daily range): BP systolic 93–120; BP diastolic 60–92
[2021-06-05 05:47] LABS: HEMATOCRIT 32.6 % (42.0-52.0); HEMOGLOBIN 11.1 gm/dL (14.0-18.0); MCH 32.5 pg (26.0-34.0); MCHC 34.1 g/dL (28.0-37.0); MCV 95.1 fL (80.0-100.0); RBC 3.43 mil/uL (4.50-6.00); RDW 13.5 % (10.5-14.5); WBC 15.2 thou/uL (4.0-11.0)
[2021-06-05 05:52] LABS: CALCIUM 8.5 mg/dL (8.5-10.1); CREATININE 1.1 mg/dL (0.7-1.3); POTASSIUM 4.3 mmol/L (3.5-5.1)
--- NOTE | 2021-06-05 06:11 | NUR ---
PT HAD UNEVENTFUL NIGHT. TUBE FEEDING HELD AT MIDNIGHT FOR TRACH/PEG TODAY 06/05/20. PER DAYSHIFT, FAMILY HAD QUESTIONS ABOUT PROCEDURE, CONSENTS NOT YET SIGNED R/T QUESTIONS. SR/SB ON MONITOR. VSS.
[2021-06-05 08:02] LABS: BE(vivo) 6.1 mmol/L (-2 to +3); HCO3 29.9 mmol/L (22.0-26.0); PCO2 40.2 mmHg (35.0-45.0); PO2 76.9 mmHg (80.0-100.0); pH 7.489 (7.360-7.450); sO2 96.2 % (92.0-98.0)
--- NOTE | 2021-06-05 11:50 | NUR ---
Discuss during los with the attending physician and during unit rounds with pulmonary MD. Maite for trach and peg today. Would need LTAC for vent weaning after he get the trach but he is uninsured. Will cont. following as needed.
--- NOTE | 2021-06-05 16:02 | NUR ---
AT BEDSIDE THIS MORNING. REVIEW POC AND PLAN FOR OR TODAY FOR TRACH/PEG SURGERY. POST-PROCEDURE, CXR SHOWED L PNEUMOTHORAX REQUIRING CHEST TUBE PLACEMENT AT THE BEDSIDE. AWARE AND PLEASED WITH PROGRESS TODAY.
[2021-06-06] VITALS (45 sets, daily range): BP systolic 90–152; BP diastolic 54–100
--- NOTE | 2021-06-06 10:16 | NUR ---
0945: DISCUSSED TF ORDER WITH SURGERY TEAM: DR. ALEJANDRO. OKAY TO INITITATE TF AT THIS TIME STARTING AT SLOW RATE AND INCREASING TOLERATED.
--- NOTE | 2021-06-06 11:35 | NUR ---
Changing tube feed formula to vital AF 1.2, at goal 70ml/hr. Water flushes need to be clarified between hospitalist (Fanny) and Dr ART.
--- NOTE | 2021-06-06 11:35 | NUR ---
1115: DR. ART AT BEDSIDE FOR INTERDISCIPLINARY ROUNDING. DISCUSSED TITRATING DOWN ON SEDATION. OKAY TO CONTINUE PER DR. ART. KEEP FENTANYL GTT ON AT THIS TIME, TIRATE IT AFTER VERSED AND PRECEDEX. IT SOLUTIONS ARCHITECT TO PLACE ORDER FOR TF. RN TO INITIATE ONCE ORDERS PLACED. NO OTHER ACUTE CHANGES TO POC. WILL CONTINUE TO MONITOR.
--- NOTE | 2021-06-06 12:38 | NUR ---
1230: RN CALLED DR. ART AT THIS TIME R/T ELEVATED HR, BP, AND RR. NOTIFIED DR. ART PT HAS BEEN TITRAED DOWN ON VERSED GTT. PT MORE ALERT, FOLLOWS COMMANDS, TRACKING WITH EYES, NODDING/SHAKING HEAD TO YES OR NO QUESTIONS. PT APPEARS ANXIOUS, FURROWED BROW. PER DR. ART, PT REQURIRES SEDATION AT THIS TIME, RETURN SEDATION TO PREVIOUS INFUSION RATES PER DR. ART. RN UPDATED SPOUSE AT BEDSIDE. THERAPEUTIC COMMUNICATION PROVIDED TO PATIENT AND GTTS TITRATED.
--- NOTE | 2021-06-06 18:21 | NUR ---
PT NOT PRORESSING WELL ON CURRENT POC. UNABLE TO WEAN SEDATION TODAY DUE TO INCREASED PT ANXIETY, HTN, TACHYCARDIA, AND TACHYPNEA. WHEN ALERT, PT ABLE TO NOD APPROPRIATELY, FOLLOW COMMANDS INCLUDING SQUEEZING RN'S HANDS; HOWEVER DUE TO CONTINUED ABNORMAL VS; PT REQUIRED RETURNING TO PREVIOUS SEDATION SETTINGS TELEPHONE ORDERED FROM DR. ART. PEG TUBE WITHOUT CONCERNS THIS SHIFT, TF INITIATED PER ORDERS. MINIMAL SECRETIONS SUCIONED FROM TRACHEOSTOMY. PT'S SPOUSE AT BEDSIDE FROM APPROXIMATELY 1000 - 1400, SHE SPOKE WITH DR. ART REGARDING POC AND DENIES ACUTE CONCERNS.
[2021-06-07] VITALS (40 sets, daily range): BP systolic 94–127; BP diastolic 54–85
[2021-06-07 05:54] LABS: HEMATOCRIT 32.6 % (42.0-52.0); HEMOGLOBIN 11.2 gm/dL (14.0-18.0); MCH 33.2 pg (26.0-34.0); MCHC 34.5 g/dL (28.0-37.0); MCV 96.4 fL (80.0-100.0); RBC 3.38 mil/uL (4.50-6.00); WBC 11.6 thou/uL (4.0-11.0)
[2021-06-07 06:05] LABS: CALCIUM 8.4 mg/dL (8.5-10.1); CREATININE 1.3 mg/dL (0.7-1.3); POTASSIUM 3.4 mmol/L (3.5-5.1)
--- NOTE | 2021-06-07 17:35 | NUR ---
PT COULD NOT TOLERATE A SEDATION VACACTION, HE BECAME TACHYCARDIC, TACHYPNEIC, AND HIGH MINUTE VOLUME ON THE VENT. HE DECOMPENSATED VIA THE AFOREMENTIONED ASSESSMENTS WITHIN MINUTES OF A SEDATION VACACTION. THE TF REMAIN BELOW THE GOAL BECAUSE HE IS NOT DIGESTING NOR ABSORBING THE NUTRITION ADEQUATELY.
[2021-06-08] VITALS (18 sets, daily range): BP systolic 91–120; BP diastolic 45–77
[2021-06-08 05:16] LABS: URINE BILIRUBIN NEGATIVE (Negative); URINE BLOOD 1+ (Negative); URINE CLARITY CLEAR; URINE COLOR YELLOW; URINE GLUCOSE-RANDOM* NEGATIVE (Negative); URINE KETONES NEGATIVE (Negative); URINE LEUKOCYTES-REFLEX TRACE (Negative); URINE NITRITE-REFLEX NEGATIVE (Negative); URINE PROTEIN (DIPSTICK) NEGATIVE (Negative); URINE UROBILINOGEN 0.2 E.U./dl (0.2-1.0)
[2021-06-08 05:44] LABS: BACTERIA-REFLEX 1-9 Few /HPF (None Seen); SQUAMOUS 4-10 Moderate /LPF (0-3); URINE RBC 3-10 Few /HPF (NONE SEEN); URINE WBC-REFLEX 0-5 Rare /HPF (0-5)
[2021-06-08 05:45] LABS: AMORPHOUS URATES Moderate /LPF (None Seen); CELLULAR CASTS 4-10 Moderate /LPF (None Seen); HYALINE CASTS 0-3 Few /LPF (None Seen); MUCUS 4-6 Moderate strn/LPF (None Seen)
[2021-06-08 06:28] LABS: ALBUMIN 2.1 g/dL (3.4-5.0); CALCIUM 8.1 mg/dL (8.5-10.1); CREATININE 1.2 mg/dL (0.7-1.3); PHOSPHORUS 3.5 mg/dL (2.6-4.7); POTASSIUM 3.1 mmol/L (3.5-5.1)
--- NOTE | 2021-06-08 08:28 | NUR ---
0810-,RADIOLOGIST,CALLED & AM PCXR SHOWS NEW LG RT TENSION PNEUMOTHORAX, W MEDIASTINAL SHIFT. CALLED DR.KO ROLDAN p & HE IS ON HIS WAY TO PUT IN CHEST TUBE.--VW
--- NOTE | 2021-06-08 19:28 | NUR ---
PATIENT HAD A CT PLACED THIS AM WITH NO OUTPUT. PATIENTS WAS HERE TO SEE HIM TODAY AND IS NOW HOME. MEDICATIONS WERE ADDED TODAY AND GIVEN. PATIENT IS RESTING IN BED.
[2021-06-09] VITALS (23 sets, daily range): BP systolic 100–136; BP diastolic 49–81
[2021-06-09 04:42] LABS: HEMATOCRIT 28.4 % (42.0-52.0); HEMOGLOBIN 9.9 gm/dL (14.0-18.0); MCH 33.7 pg (26.0-34.0); MCHC 34.7 g/dL (28.0-37.0); RBC 2.93 mil/uL (4.50-6.00); RDW 14.1 % (10.5-14.5); WBC 10.7 thou/uL (4.0-11.0)
[2021-06-09 05:12] LABS: CREATININE 0.9 mg/dL (0.7-1.3); POTASSIUM 3.2 mmol/L (3.5-5.1)
--- NOTE | 2021-06-09 10:33 | NUR ---
0830: DR. CHIRINOS AT BEDSIDE. DISCUSSED PT'S INTOLERANCE TO TITRATING DOWN ON SEDATION. PER DR. CHIRINOS, WILL POSSIBLY NEED TO ONLY TITRATE VERSED 1MG PER DAY. RN TO ATTEMPT TODAY.
--- NOTE | 2021-06-09 13:36 | NUR ---
CM REVIEWED CHART AND SPOKE WITH NURSE. PT'S CARE WAS DISCUSSED DURING ICU ROUNDS THIS DAY. PT IS OUT OF COVID ISOLATION. PT WITH TRACH AND PEG FI02 45% PEEP 8. PT WITH BL CHEST TUBES. PT ON TUBE FEEDINGS. CM FOLLOWING.
--- NOTE | 2021-06-09 20:20 | NUR ---
1900: PT IS VERY SLOWLY PROGRESSING ON PLAN OF CARE EVIDENCED BY DISCONTINUATION OF PROPOFOL, RN ATTEMPTED TO DECREASE VERSED GTT THIS SHIFT; PT TOLERATED DECREASE FROM 10MG TO 9MG/HR. SPO2 IN HIGH 90S ON 35% FIO2. IMPROVEMENT IN BILATERAL PNEUMOS PER CXR TODAY. PT'S SPOUSE AT BEDSIDE FROM APPROXIMATELY [phone] AND [phone] THIS SHIFT. SHE WAS UPDATED ON PLAN OF CARE AND SPOKE WITH DR. MALDONADO AT BEDSIDE REGARDING CHEST TUBES. PTS SPOUSE VERBALIZES UNDERSTANDING OF ALL CARES AND INFORMATION.
[2021-06-10] VITALS (24 sets, daily range): BP systolic 100–149; BP diastolic 49–91
[2021-06-10 05:46] LABS: CALCIUM 7.8 mg/dL (8.5-10.1); CREATININE 0.8 mg/dL (0.7-1.3); POTASSIUM 3.2 mmol/L (3.5-5.1)
--- NOTE | 2021-06-10 14:42 | NUR ---
ASSUMED CARE OF PT AT 0700 PTS AT BEDSIDE AT 1030, UPDATED PER POC PT GETS TACHY WHEN AWAKE AND AGITATED, WORKING ON TITRATING SEDATION DRIPS OFF
[2021-06-11] VITALS (21 sets, daily range): BP systolic 101–129; BP diastolic 50–91
[2021-06-11 05:00] LABS: CALCIUM 7.8 mg/dL (8.5-10.1); CREATININE 0.8 mg/dL (0.7-1.3); POTASSIUM 3.6 mmol/L (3.5-5.1)
--- NOTE | 2021-06-11 07:36 | NUR ---
PATIENT FI02 TITRATED DOWN FROM 45% TO 40% AND VERSED TITRATED DOWN FROM 9 TO 5 OVERNOC. PATIENT DOES BECOME AGITATED AT TIMES WHEN AWAKE AND TACHYCARDIC, HAS VERY STRONG COUGH AND GAG REFLEX. PATIENT COUGHS UP COPIOUS AMOUNTS OF THICK WHITE/BROWN SECRETIONS. PATIENT IS SLOWING PROGRESSING TOWARD PLAN OF CARE. WILL CONTINUE TO MONITOR.
--- NOTE | 2021-06-11 12:54 | NUR ---
PT HAS A RT IJ THAT WAS PLACED BEFORE HIS TRACH WAS CREATED. MULTIPLE SECRETIONS WITH DRESSING CHANGES AND THE RISK OF INFECTION IS HIGH. A TUNNELED LINE REQUESTE FOR 06/12/21 FOR LT ABX AND LOWER RISK OF INFECTIONL
[2021-06-12] VITALS (22 sets, daily range): BP systolic 98–133; BP diastolic 54–87
[2021-06-12 06:06] LABS: HEMATOCRIT 31.1 % (42.0-52.0); HEMOGLOBIN 10.6 gm/dL (14.0-18.0); MCH 32.9 pg (26.0-34.0); MCHC 34.1 g/dL (28.0-37.0); MCV 96.5 fL (80.0-100.0); RBC 3.22 mil/uL (4.50-6.00); RDW 14.5 % (10.5-14.5); WBC 12.7 thou/uL (4.0-11.0)
[2021-06-12 06:09] LABS: CALCIUM 7.9 mg/dL (8.5-10.1); CREATININE 0.8 mg/dL (0.7-1.3); POTASSIUM 3.7 mmol/L (3.5-5.1)
--- NOTE | 2021-06-12 08:05 | NUR ---
PT MOVES EXTREMITIES SPONTANEOUSLY, INTERMITTENTLY FOLLOWS COMMANDS. PATIENT HAS STRONG COUGH AND GAG, MODERATE AMOUNT OF ORAL SECRETIONS AND SMALL AMOUNT OF SECRETIONS AROUND TRACH SITE. TITRATED DOWN VERSED GTT OVERNOC TO 4 WITH 1 PRN ATIVAN IVP GIVEN. PATIENT STABLE OVERALL. PLAN IS FOR PLACEMENT OF TUNNELED CENTRAL LINE TODAY AND CONTINUE WEANING PATIENT OFF SEDATION.
[2021-06-12 09:22] LABS: BE(vivo) -1.2 mmol/L (-2 to +3); HCO3 22.6 mmol/L (22.0-26.0); PCO2 34.3 mmHg (35.0-45.0); PO2 65.4 mmHg (80.0-100.0); pH 7.436 (7.360-7.450); sO2 93.7 % (92.0-98.0)
--- NOTE | 2021-06-12 14:21 | NUR ---
Discussed during los via phone call with the attending physician. Trach with vent support 40% FIO2, peep 8 and peg for nutritional support. Bilat chest tubs. Cont. on IV gtts. Will cont. following as needed. 1st source has been involved, Kevin does not qualify for [place] Medicaid.
--- NOTE | 2021-06-12 19:07 | NUR ---
vascular access consult for PICC placement. Consent signed and timeout preformed prior to start with Dayana LARIOS. 5 fr triple lumen picc placed to left upper arm without difficulty. Guidewire removed intact. Patient tolerated well. Flushes and draws well. Tip confirmation with ECG technology. Okay to use PICC. Bedside RN to remove IJ.
--- NOTE | 2021-06-12 19:50 | NUR ---
SEDATION STOPAS PERMD DESMOND ORDER. PT WENT TACHYPENEA RR > 40 AND HR > 120. SEDATION RESTARTED AT A LOWER DOSE. PT AT BEDSIDE CONSENTED TO PICC. PICC LINE INSERTED IN LEFT ARM .
[2021-06-13] VITALS (24 sets, daily range): BP systolic 80–149; BP diastolic 45–87
--- NOTE | 2021-06-13 04:00 | NUR ---
AT APPROX 0340, CONTACTED DR. LOGAN D/T CHANGE IN PATIENT STATUS. PATIENT TACHYCARDIC (UP TO 150s), TACHYPNEIC (UP TO 60s), LABORED, AND APPEARING DISTRESSED. BOTH CHEEKS PUFFY AND RT EYE SWOLLEN. BOTH CHEST TUBES TURNED TO -40 SXN AND STAT CXR ORDERED PER ORDERS.
--- NOTE | 2021-06-13 04:10 | NUR ---
PER DR. LOGAN PROPOFOL GTT STARTED.
--- NOTE | 2021-06-13 04:10 | NUR ---
AT APPROX 0400, CONTACTED Aide HURTADO NP REGARDING PATIENT STATUS AND ASKED IF SHE'D COME TO BEDSIDE. PATIENT VENT SETTINGS CHANGED. CHEST TUBES VISUALIZED AND DRESSING CHANGED.
[2021-06-13 10:33] LABS: BE(vivo) 2.3 mmol/L (-2 to +3); HCO3 27.1 mmol/L (22.0-26.0); PCO2 43.5 mmHg (35.0-45.0); PO2 76.5 mmHg (80.0-100.0); pH 7.413 (7.360-7.450); sO2 95.4 % (92.0-98.0)
[2021-06-14] VITALS (24 sets, daily range): BP systolic 87–119; BP diastolic 50–75
[2021-06-14 04:29] LABS: BE(vivo) 1.9 mmol/L (-2 to +3); PCO2 44.4 mmHg (35.0-45.0); PO2 85.4 mmHg (80.0-100.0); pH 7.402 (7.360-7.450); sO2 96.4 % (92.0-98.0)
[2021-06-14 05:19] LABS: HEMATOCRIT 26.9 % (42.0-52.0); HEMOGLOBIN 9.3 gm/dL (14.0-18.0); MCH 33.4 pg (26.0-34.0); MCHC 34.5 g/dL (28.0-37.0); MCV 96.8 fL (80.0-100.0); RBC 2.78 mil/uL (4.50-6.00); RDW 14.3 % (10.5-14.5); WBC 9.8 thou/uL (4.0-11.0)
[2021-06-14 06:39] LABS: CREATININE 0.7 mg/dL (0.7-1.3); MAGNESIUM 1.8 mg/dL (1.8-2.4); POTASSIUM 4.1 mmol/L (3.5-5.1)
[2021-06-15] VITALS (34 sets, daily range): BP systolic 90–132; BP diastolic 41–74
[2021-06-15 04:01] LABS: BE(vivo) 4.7 mmol/L (-2 to +3); HCO3 28.9 mmol/L (22.0-26.0); PCO2 41.3 mmHg (35.0-45.0); PO2 67.8 mmHg (80.0-100.0); pH 7.463 (7.360-7.450); sO2 94.5 % (92.0-98.0)
[2021-06-15 05:24] LABS: HEMATOCRIT 29.4 % (42.0-52.0); MCH 33.1 pg (26.0-34.0); MCHC 33.9 g/dL (28.0-37.0); MCV 97.6 fL (80.0-100.0); RBC 3.01 mil/uL (4.50-6.00); RDW 14.3 % (10.5-14.5); WBC 10.6 thou/uL (4.0-11.0)
[2021-06-15 05:29] LABS: CALCIUM 8.1 mg/dL (8.5-10.1); CREATININE 0.7 mg/dL (0.7-1.3); MAGNESIUM 1.6 mg/dL (1.8-2.4); POTASSIUM 3.6 mmol/L (3.5-5.1)
[2021-06-16] VITALS (46 sets, daily range): BP systolic 115–141; BP diastolic 62–101
[2021-06-16 05:37] LABS: HEMATOCRIT 27.7 % (42.0-52.0); HEMOGLOBIN 9.5 gm/dL (14.0-18.0); MCH 33.1 pg (26.0-34.0); MCHC 34.2 g/dL (28.0-37.0); MCV 96.6 fL (80.0-100.0); RBC 2.87 mil/uL (4.50-6.00); RDW 14.5 % (10.5-14.5); WBC 9.3 thou/uL (4.0-11.0)
[2021-06-16 06:16] LABS: CALCIUM 8.2 mg/dL (8.5-10.1); CREATININE 0.7 mg/dL (0.7-1.3); MAGNESIUM 1.6 mg/dL (1.8-2.4); POTASSIUM 3.9 mmol/L (3.5-5.1)
--- NOTE | 2021-06-16 09:44 | NUR ---
ASSUMED CARE OF PT AT 0700 DR. MALDONADO AT BEDSIDE AT 0945, REQUESTED CHEST X RAY DUE TO NEW AIRLEAK IN THE CHEST TUBE ON THE LEFT SIDE.
--- NOTE | 2021-06-16 11:20 | NUR ---
Discussed during unit rounds with pulmonary MD and during los with the attending physician. Trach, peg with vent support and nutritional support. Follows commands. Bilat chest tubes. Out of enhanced covid + Isolation. visits often and is provided updates. No anticipated dc. will cont. following as needed. Uninsured, will need to vent wean here when ordered pulmonary MD.
[2021-06-17] VITALS (32 sets, daily range): BP systolic 101–137; BP diastolic 60–91
[2021-06-17 06:18] LABS: HEMATOCRIT 31.8 % (42.0-52.0); HEMOGLOBIN 10.6 gm/dL (14.0-18.0); MCH 32.4 pg (26.0-34.0); MCHC 33.4 g/dL (28.0-37.0); RBC 3.28 mil/uL (4.50-6.00); RDW 14.4 % (10.5-14.5); WBC 12.7 thou/uL (4.0-11.0)
[2021-06-17 06:37] LABS: CALCIUM 8.6 mg/dL (8.5-10.1); CREATININE 0.7 mg/dL (0.7-1.3); MAGNESIUM 1.7 mg/dL (1.8-2.4)
--- NOTE | 2021-06-17 07:28 | NUR ---
Patient making progress towards outcome goals. Vital signs and rhythm stable. Oxygen saturation better with 60% Oxygen, other vent setting unchaged. Coughing spells almost looking like patient wound vomit. Zofran and Guifenesin given. Off Propofol. Precedex only at 1 mg. Lorazepam given for anxiety. Tolerating tube feedings.
[2021-06-18] VITALS (23 sets, daily range): BP systolic 104–144; BP diastolic 56–86
--- NOTE | 2021-06-18 06:13 | NUR ---
Patient was stable this shift. Patient continues to be calm. Gave scheduled seroquel per tube. Also gave 2 doses of 1 mg ativan per tube. Able to turn down Precedex to 1 mcg/kg/hr while keeping patient calm. Patient slept on and off throughout the night. Very lucid. Heart rate and rhythm stable. Blood pressure stable. Adequate oxygenation on current vent settings. Chest tubes stable. Changed out chambers as they were full. No family called this shift. See documentation on interventions for assessment details. Patient is progressing towards goals.
[2021-06-18 08:03] LABS: HEMATOCRIT 29.2 % (42.0-52.0); MCH 32.6 pg (26.0-34.0); MCHC 34.3 g/dL (28.0-37.0); MCV 95.2 fL (80.0-100.0); PLATELET COUNT 193 thou/uL (150-400); RBC 3.07 mil/uL (4.50-6.00); RDW 14.3 % (10.5-14.5); WBC 11.1 thou/uL (4.0-11.0)
[2021-06-18 08:17] LABS: ALBUMIN 1.7 g/dL (3.4-5.0); CALCIUM 8.1 mg/dL (8.5-10.1); CREATININE 0.7 mg/dL (0.7-1.3); POTASSIUM 3.7 mmol/L (3.5-5.1); TOTAL BILIRUBIN 0.4 mg/dL (0.2-1.0); TOTAL PROTEIN 5.7 g/dL (6.4-8.2)
[2021-06-18 13:28] LABS: ABSOLUTE NEUTROPHILS 9.5 thou/uL (1.4-8.2); ATYPICAL LYMPHS 3 %; HYPOCHROMASIA 2+; METAMYELOCYTES 2 %
[2021-06-18 13:29] LABS: POIKILOCYTOSIS 1+
--- NOTE | 2021-06-18 17:20 | NUR ---
PATIENT PROGRESSING TOWARDS THE PLAN OF CARE EVIDENCED BY PATIENT TOLERATING CPAP TRIAL FOR APPROXIMATELY 4 HOURS TODAY.
[2021-06-19] VITALS (24 sets, daily range): BP systolic 100–136; BP diastolic 56–93
--- NOTE | 2021-06-19 06:00 | NUR ---
PATIENT PRECEDEX GTT TITRATED DOWN TO 0.7 WITH GOOD RESULTS. PATIENT FOLLOWS COMMANDS, NODS HEAD YES/NO TO QUESTIONS, AND MOUTHS WORDS TO COMMUNICATED NEEDS/WANTS. COMPLETED CPAP TRIALING ON DAY SHIFT. VENT SETTINGS MAINTAINED WITH 02 SAT 97% AND ABOVE THROUGHOUT THE SHIFT. TF AT GOAL WITH MINIMAL RESIDUALS AND BM X1 REQUIRING LINEN AND GOWN CHANGE. WILL CONTINUE TO MONITOR AND FOLLOW POC. PATIENT PROGRESSING WELL TOWARDS POC.
[2021-06-19 06:12] LABS: ABSOLUTE NEUTROPHILS 7.7 thou/uL (1.4-8.2); BASOPHILS 0.5 % (0.0-2.0); EOSINOPHILS 7.2 % (0.0-3.0); HEMATOCRIT 30.3 % (42.0-52.0); HEMOGLOBIN 10.3 gm/dL (14.0-18.0); LYMPHOCYTES 11.7 % (24.0-44.0); MCH 32.4 pg (26.0-34.0); MCHC 34.1 g/dL (28.0-37.0); MCV 95.1 fL (80.0-100.0); MONOCYTES 5.9 % (1.0-8.0); PLATELET COUNT 223 thou/uL (150-400); POLYS 74.7 % (36.0-66.0); RBC 3.19 mil/uL (4.50-6.00); RDW 13.9 % (10.5-14.5); WBC 10.3 thou/uL (4.0-11.0)
[2021-06-19 06:31] LABS: ALBUMIN 1.8 g/dL (3.4-5.0); CALCIUM 8.4 mg/dL (8.5-10.1); CREATININE 0.6 mg/dL (0.7-1.3); POTASSIUM 3.9 mmol/L (3.5-5.1); TOTAL BILIRUBIN 0.3 mg/dL (0.2-1.0); TOTAL PROTEIN 5.7 g/dL (6.4-8.2)
--- NOTE | 2021-06-19 13:27 | NUR ---
Discussed during los with the attending physician and during unit rounds. He nods for yes and no questions. follows commands. Trach and peg. CPAP trails. Will cont. following as needed for dc needs. at bedside.
--- NOTE | 2021-06-19 19:00 | NUR ---
THIS PT IS PROGRESSING TOWARD THE POC EVIDENCED BY DECREASING O2 DEMANDS WHILE BEING ON A CPAP TRIAL FROM 0950 AND CONTINUES THROUGH SHIFT CHANGE. HE IS FOLLOWING COMMANDS, A/OX4, AND QUILES. THIS PT HAS BEEN RESTING COMFORTABLY DURING THE CPAP TRIAL; HE HAS BEEN OXYGENATING > 94% ALL DAY.
[2021-06-20] VITALS (24 sets, daily range): BP systolic 92–147; BP diastolic 57–90
--- NOTE | 2021-06-20 06:28 | NUR ---
PATIENT IS PROGRESSING TOWARD GOALS AND PLAN OF CARE. PATIENT CPAP TRIALING BEGAN 06/18/21 AND PATIENT HAS SLOWLY BEEN ABLE TO INCREASE AMOUNT OF TIME ABLE TO TOLERATE CPAP TRIALING FROM 4 HRS ON DAY 1 TO 14 HRS THE SECOND DAY. PATIENT IS ALERT & ORIENTED, FOLLOWS COMMANDS, NODS YES/NO TO QUESTIONS, AND MOUTHS WORDS TO EXPRESS NEEDS/WANTS. HAS PERIODIC COUGHING SPELLS, MINIMAL IN-LINE SECRETIONS, AND MODERATE ORAL SECRETIONS. WILL CONTINUE TO MONITOR AND FOLLOW POC.
[2021-06-20 08:55] LABS: HEMATOCRIT 29.4 % (42.0-52.0); HEMOGLOBIN 10.1 gm/dL (14.0-18.0)
[2021-06-20 09:05] LABS: CALCIUM 8.3 mg/dL (8.5-10.1); CREATININE 0.6 mg/dL (0.7-1.3); MAGNESIUM 1.7 mg/dL (1.8-2.4); POTASSIUM 3.8 mmol/L (3.5-5.1)
--- NOTE | 2021-06-20 14:57 | NUR ---
ASSUMED CARE OF THE PT AT 0700 DR. MALDONADO AT BEDSIDE AT 0830, UPDATED PER POC AND CHECKED LEFT CHEST TUBE DR. MONTOYA AT BEDSIDE AT 0900, ORDERS FOR PT, OT GIVEN PTS AT BEDSIDE OFF AND ON ALL MORNING. PT IS COMMUNICATING WITH HEAD NODS AND MOUTHING OF WORDS.
--- NOTE | 2021-06-20 15:07 | NUR ---
luis fernando spoke with robert about weaning off vent and have rehab before going home, we would look into [facility] but with him being uninsruance might need to look into 5N when he is able to be weaned off vent. Luis Fernando spoke with [facility] and they cant not take any margoth at this time, [facility] they can not take any margoth either. Thanks for all you guys are doing for him and we are getting many bills already and been told that he will be covered since this is from [employer], he works and doesnt have insurance, i work . 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 Education provided that she should talk with billing department here. Will cont following as needed.
[2021-06-21] VITALS (25 sets, daily range): BP systolic 95–132; BP diastolic 55–79
[2021-06-21 06:37] LABS: CALCIUM 8.6 mg/dL (8.5-10.1); CREATININE 0.7 mg/dL (0.7-1.3); POTASSIUM 3.6 mmol/L (3.5-5.1)
[2021-06-22] VITALS (23 sets, daily range): BP systolic 98–141; BP diastolic 57–78
--- NOTE | 2021-06-22 09:44 | NUR ---
ASSUMED CARE OF PT AT 0700 DR. CHIRINOS AT BEDSIDE AT 0915, SPOKE TO AND UPDATED PER POC AT BEDSIDE AT 0845, UPDATED HER PER POC PT WAS PLACED ON OPTIFLO THIS MORNING AND IS TOLERATING IT WELL. PT IS ALERT, COMMUNICATING THROUGH HEAD NODS AND MOUTHING WORDS.
[2021-06-22 10:55] LABS: HCO3 31.2 mmol/L (22.0-26.0); PCO2 42.7 mmHg (35.0-45.0); PO2 84.2 mmHg (80.0-100.0); pH 7.481 (7.360-7.450); sO2 96.9 % (92.0-98.0)
[2021-06-23] VITALS (24 sets, daily range): BP systolic 92–135; BP diastolic 59–78
--- NOTE | 2021-06-23 06:52 | NUR ---
ASSUME CARE 1900.T/VITALS STABLE. DENIES ANY PAIN. A/O X 4, STRUGGLES TO MOUTH WORDS, FOLLOWS COMMANDS APPROPRIATELY. MOVES UPPER EXTREMITITES BUT NEEDS AASISTANCE WITH MOVING LOWER EXTREMITIES. SR ON MONITOR. PT SWITCHED FROM OPTIFLOW TO VENT THROUGH/CPAP SETTINGS/FIO2 45%/ PEEP 5. PT TOLERATED WELL. EPISODES OF COUGH/GOOD COYGH EFFORT WITH MODERATE AMOUNT OF SECRETIONS NOTED.TOLERATING TF AT GOAL RATE 70ML/HR. BILATERAL CHEST TUBES IN PLACE. ASSESSMENT CHARTED. PLAN IS TO CONTINUE TO MONITOR AND MANAGE RESP FUNCION. WILL CONTINUE TO MONITOR AND FOLLOW WITH POC
--- NOTE | 2021-06-23 10:57 | NUR ---
ASSSUMED CARE OF PT AT 0700 PTS AT BEDSIDE SINCE [address] MALDONADO AT BEDSIDE AND LOOKED AT PEG TUBE, HE SAID TO CLEAN UNDERNEATH RING WITH WET GAUZE, DRY WELL AND ITS OK TO PLACE A SPLIT GAUZE BUT MAKE SURE THE RING STAYS IN PLACE AT THREE.
--- NOTE | 2021-06-23 12:39 | NUR ---
Case discussed in rounds. Dc time frame and needs are uncertain pending his progress and uninsured status. Pt is cpaping and on 40%high flow. Trach and peg care. Pt is awake, alert, and following commands and mouthing words. at bedside frequently.PT and OT working with the pt as tolerated .Rt and lt chest tubes in place and rt to waterseal. Pt is progressing slowly and out of covid ISO. Will continue to follow.
[2021-06-24] VITALS (24 sets, daily range): BP systolic 99–123; BP diastolic 62–81
[2021-06-24 09:48] LABS: BE(vivo) 5.9 mmol/L (-2 to +3); PCO2 41.5 mmHg (35.0-45.0); PO2 90.9 mmHg (80.0-100.0); pH 7.477 (7.360-7.450); sO2 97.4 % (92.0-98.0)
--- NOTE | 2021-06-24 16:18 | NUR ---
PATIENTS IN TO SEE HIM. TALKED TO DOCTOR DESMOND AND HE SAID FINGERSTICKS BID ORDER CHANGED. PATIENT 02 HAS BEEN TURNED DOWN AND IS NOW 35%. PATIENT IS RESTING IN BED WITH CALL FIGUEROA IN REACH.
[2021-06-25] VITALS (9 sets, daily range): BP systolic 114–149; BP diastolic 66–94
--- NOTE | 2021-06-25 20:34 | NUR ---
PT EXPERIENCED AN EPISODE OF ANXIOUSNESS AND RESTLESSNESS THIS MORNING ALONG WITH A VIOLENT COUGH. ATIVAN AND LOPRESSOR IV PUSHES WERE GIVEN. PT RESPONDED WELL TO TREATMENT AND SETTLED DOWN. PT HAS NOT C/O PAIN AND HAS NOT EXPRESSED ANY NEEDS. PT HAS BEEN CALM AND COOPERATIVE THROUGHOUT THE SHIFT AFTER THE MORNING EPISODE OF ANXIETY. R SIDED CHEST TUBE WAS CHANGED FROM WATER SEAL TO -20 SUCTION AROUND 1100, PER DR. LOGAN. PT'S WAS AT BEDSIDE THIS MORNING AND EVENING AND PT'S MOTHER WAS AT BEDSIDE THIS AFTERNOON. FAMILY WAS UPDATED REGARDING TREATMENT AND POC. NEXT STEPS OF CARE AND GOALS WERE ALSO DISCUSSED WITH FAMILY AND PT. CHEST TUBE DRESSINGS WERE CHANGED BY THIS RN AROUND 1800. WILL CONTINUE TO MONITOR AND FOLLOW POC.
[2021-06-26] VITALS (26 sets, daily range): BP systolic 118–162; BP diastolic 79–112
[2021-06-26 07:41] LABS: ALBUMIN 2.5 g/dL (3.4-5.0); CALCIUM 8.9 mg/dL (8.5-10.1); CREATININE 0.7 mg/dL (0.7-1.3); MAGNESIUM 1.9 mg/dL (1.8-2.4); POTASSIUM 3.6 mmol/L (3.5-5.1); TOTAL BILIRUBIN 0.4 mg/dL (0.2-1.0); TOTAL PROTEIN 7.1 g/dL (6.4-8.2)
--- NOTE | 2021-06-26 13:19 | NUR ---
PHYSICAL THERAPY MOVED PT TO THE CHAIR. PT BECAME TACHYCARDIC AND TACHYPNEIC. PT SAT IN CHAIR FOR APPROXIMATELY 35 MINUTES BEFORE RETURNING TO BED. PT BECAME ANIXOUS. PRN MEDICATIONS GIVEN. PT BREATHING AND HR DECREASED. NURSE WITH CONTINUE TO MONITOR
[2021-06-27] VITALS (11 sets, daily range): BP systolic 113–147; BP diastolic 83–95
--- NOTE | 2021-06-27 10:05 | NUR ---
RN stated pt complaining of increased hunger. Will increase tube feed rate to 75ml/hr.
--- NOTE | 2021-06-27 14:21 | NUR ---
Discussed during los with the attending physician. Trach and peg. Cont to have vent support and trying opti-flow 40 % FIO2. Bilat chest tubes. visits off and on during the day. Will cont following as needed.
--- NOTE | 2021-06-27 18:52 | NUR ---
See [employer] for assessment. pt sleeping now after being awake all day. Up to chair with PT, legs weak. Cont to enc ROM in bed. pt most c/o being hungry. TF rate increased per vice president of sales to 75 Vital AF. no residual. Temp placement of speaker valve per Speech. evaluated for swallow, pt tolerated well. back on Optiflow, cont to have frequent coughing episodes, which fatigues pt. Bilat CT to suction per Dr Caruso. minimal drainage. only sm air leak noted on Lt with cough. 02sat Wnl. Continue plan of care
[2021-06-28] VITALS (7 sets, daily range): BP systolic 104–127; BP diastolic 71–90
[2021-06-28 05:29] LABS: BASOPHILS 0.4 % (0.0-2.0); EOSINOPHILS 8.3 % (0.0-3.0); HEMATOCRIT 36.2 % (42.0-52.0); HEMOGLOBIN 12.4 gm/dL (14.0-18.0); LYMPHOCYTES 14.5 % (24.0-44.0); MCH 31.7 pg (26.0-34.0); MCHC 34.2 g/dL (28.0-37.0); MCV 92.8 fL (80.0-100.0); MONOCYTES 5.3 % (1.0-8.0); PLATELET COUNT 303 thou/uL (150-400); POLYS 71.5 % (36.0-66.0); RDW 13.9 % (10.5-14.5); WBC 18.2 thou/uL (4.0-11.0)
[2021-06-28 05:37] LABS: CALCIUM 8.8 mg/dL (8.5-10.1); CREATININE 0.8 mg/dL (0.7-1.3); POTASSIUM 3.6 mmol/L (3.5-5.1)
--- NOTE | 2021-06-28 06:25 | NUR ---
ASSUME CARE 1900. PT/VITALS STABLE. DENIES PAIN. MODERATELY TOLERTES ACTIVITY. HELPS WITH TURNS BUT STILL VRY WEAK. PT/OT WORKING WITH PT. A/O X 4. ANXIETY NOTED/LORAZEPAN GIVEN. ST ON MONITOR WITH HR WITHIN LOW 100s TO ONE-TEENS. WITH COUGHING /ANXIETY OR MOVEMENT HR GOES UP TO 130s AND 140s BUT STABILIZES AT REST. PT HAD COUGHING FITS/GUAIFENESIN AND DEXTROMETHORPHAN. SECRETIONS ARE VERY THICK AND DIFFICULT TO SUCTION OUT BUT PT HAD VERY GOOD COUGH EFFORT AND SOMETIMES COUGHS UP MUCUS. ASSESSMENT CHARTED. PROGRESSING MORDERATELY WITH POC. PLAN IS TO CONTINUE TO PT/OT, MONITOR AND MANAGE RESP FUNCTION, AND EVENTUALLY SEND PT TO 5N FOR REHAB. PT ON OPTIFLOW DURING THE DAY AND VENT AT [facility], AND TOLERSTES BOTH. WILL CONTINUE TO MONITOR AND FOLLOW WITH POC
[2021-06-29] VITALS (13 sets, daily range): BP systolic 106–139; BP diastolic 73–95
[2021-06-29 02:29] LABS: URINE BILIRUBIN NEGATIVE (Negative); URINE BLOOD 2+ (Negative); URINE CLARITY CLEAR; URINE COLOR YELLOW; URINE GLUCOSE-RANDOM* NEGATIVE (Negative); URINE KETONES NEGATIVE (Negative); URINE LEUKOCYTES-REFLEX NEGATIVE (Negative); URINE NITRITE-REFLEX NEGATIVE (Negative); URINE PROTEIN (DIPSTICK) 2+ (Negative); URINE SPECIFIC GRAVITY >= 1.030 (1.005-1.035); URINE UROBILINOGEN 0.2 E.U./dl (0.2-1.0)
[2021-06-29 02:42] LABS: BACTERIA-REFLEX 1-9 Few /HPF (None Seen); CELLULAR CASTS 0-3 Few /LPF (None Seen); CRYSTALS None Seen /LPF (None Seen); HYALINE CASTS 0-3 Few /LPF (None Seen); MUCUS 0-3 Light strn/LPF (None Seen); SQUAMOUS 0-3 Few /LPF (0-3); URINE WBC-REFLEX 0-5 Rare /HPF (0-5)
[2021-06-29 05:21] LABS: ABSOLUTE NEUTROPHILS 10.6 thou/uL (1.4-8.2); BASOPHILS 0.5 % (0.0-2.0); EOSINOPHILS 9.8 % (0.0-3.0); HEMOGLOBIN 11.3 gm/dL (14.0-18.0); LYMPHOCYTES 16.8 % (24.0-44.0); MCH 32.5 pg (26.0-34.0); MCHC 35.4 g/dL (28.0-37.0); MONOCYTES 6.6 % (1.0-8.0); PLATELET COUNT 284 thou/uL (150-400); POLYS 66.3 % (36.0-66.0); RBC 3.48 mil/uL (4.50-6.00); RDW 14.1 % (10.5-14.5); WBC 15.9 thou/uL (4.0-11.0)
[2021-06-30] VITALS (12 sets, daily range): BP systolic 112–135; BP diastolic 72–95
[2021-06-30 05:45] LABS: ABSOLUTE NEUTROPHILS 9.9 thou/uL (1.4-8.2); BASOPHILS 0.2 % (0.0-2.0); EOSINOPHILS 10.2 % (0.0-3.0); HEMATOCRIT 34.2 % (42.0-52.0); HEMOGLOBIN 11.8 gm/dL (14.0-18.0); LYMPHOCYTES 18.5 % (24.0-44.0); MCH 31.8 pg (26.0-34.0); MCHC 34.5 g/dL (28.0-37.0); MCV 92.1 fL (80.0-100.0); MONOCYTES 6.3 % (1.0-8.0); PLATELET COUNT 280 thou/uL (150-400); POLYS 64.8 % (36.0-66.0); RBC 3.72 mil/uL (4.50-6.00); RDW 13.9 % (10.5-14.5); WBC 15.3 thou/uL (4.0-11.0)
--- NOTE | 2021-06-30 10:11 | HC ---
[facility] [place] [address] CONSULTATION Name: KEVIN ARELLANO Room #: 249-P ADM IN M.R.#: [id number] Admission: 05/13/21 Attend Phys: Rahat Alvarado MD Discharge: Date of : 75 Report #: [id number] THIS REPORT FOR: cc: FAM - No family physician/PCP FAM - No family physician/PCP Sal Colby MD ~ DATE OF SERVICE: 06/27/2021 We were asked to see Kevin Arellano for persistent air leak. HISTORY OF PRESENT ILLNESS: The patient was admitted on 05/13/2021 with cough and shortness of breath. The patient at that time had a history of three to four days of progressively worsening shortness of breath and dry cough. No associated chest pain, nausea, and vomiting, fever, chills or other symptoms. The patient stated at the time that he took a home COVID test that was positive. PAST MEDICAL HISTORY: According to the chart, the patient denies having had any previous medical problems. ALLERGIES: PENICILLIN. REVIEW OF SYSTEMS: Gathered from the chart as the patient has a trach shield and is not speaking. Trach shield with Optiflow oxygen and is not speaking, but review of systems as stated to be at that time negative except as noted in the history. SOCIAL HISTORY: Patient denies tobacco use. PHYSICAL EXAMINATION: GENERAL: The patient is in bed with Optiflow trach shield in place, appears awake and alert. VITAL SIGNS: Temperature 36.7, heart rate 116, blood pressure 127/93, O2 sat 96 on 40% Optiflow per trach. HEENT: No scleral icterus. No arcus. NECK: No mass. I hear no bruit. CHEST: Distant breath sounds. I hear no adventitious sounds anteriorly. HEART: Rhythm tachycardic. No murmur. Regular rhythm. ABDOMEN: Soft. PEG in place. EXTREMITIES: Trace edema. VASCULAR: 2+ dorsalis pedis pulses bilaterally. NEUROLOGIC: No obvious rash or infection. MUSCULOSKELETAL: No bone or joint asymmetry or deformity. In general, the patient appears somewhat wasted. We note that chest tubes are in place bilaterally. I see no air leak. I have examined both chest tubes from the patient to the [facility]. There appeared to [address] [address] CONSULTATION Name: KEVIN ARELLANO Room #: 249-P ADM IN M.R.#: [id number] Admission: 05/13/21 Attend Phys: Rahat Alvarado MD Discharge: Date of : 75 Report #: [id number] be no discontinuities in the connections. Both chest tubes appeared to be inserted satisfactory distance from the most peripheral hole in the tube and the left side is on waterseal, the right side is on suction. Both tubes have been negative pressure without obvious air leak with normal tidaling. Chest x-ray shows infiltrates bilaterally with small pneumothorax at the right apex and a smaller left apical pneumothorax. 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 At this point, air leaks appear minimal and the patient is sufficiently ill that I would do nothing except continue chest tubes to suction or waterseal as needed and allow lung to heal up as much as possible and as manifested by both x-ray and clinical improvement with decreasing need for supplemental oxygen before I would submit the patient to surgery. We will continue to follow along with you. Thank you for the opportunity to see this patient in consultation. <ELECTRONICALLY SIGNED> By: Sal Colby MD 06/30/21 1011 1600 0112 Sal Colby MD /nt
--- NOTE | 2021-06-30 12:10 | NUR ---
Recommend transition pt to combination of bolus and nocturnal feeds with start of new oral intake. If approved with Dr Escobedo, change formula to jevity 1.5, 3 cartons bolus per day and 40ml/hr nocturnal feeds x 10hr.
--- NOTE | 2021-06-30 16:38 | NUR ---
Chart review. trach and peg. Started PO diet. Using 8L oxygen and then trach shield at hs. possible will be able to move out of icu soon. 5N following. cont. to visit daily. No anticipated dc over the weekend. will cont following as needed.
[2021-07-01] VITALS (13 sets, daily range): BP systolic 112–131; BP diastolic 64–91
--- NOTE | 2021-07-01 04:07 | NUR ---
Patient progressing towards plan of care as evidenced by continued improvement of oxygenation and decreased anxiety. Patient has been awake most of the night, however has been calm and cooperative. Plan of care is to continue to monitor patient status and vital signs. Chest tubes remain stable at this time.
[2021-07-01 04:30] LABS: HEMATOCRIT 31.5 % (42.0-52.0); MCH 32.2 pg (26.0-34.0); MCHC 35.1 g/dL (28.0-37.0); MCV 91.7 fL (80.0-100.0); PLATELET COUNT 245 thou/uL (150-400); RBC 3.43 mil/uL (4.50-6.00); RDW 14.3 % (10.5-14.5); WBC 13.2 thou/uL (4.0-11.0)
[2021-07-01 05:11] LABS: ALBUMIN 2.5 g/dL (3.4-5.0); CALCIUM 8.9 mg/dL (8.5-10.1); CREATININE 0.6 mg/dL (0.7-1.3); POTASSIUM 3.7 mmol/L (3.5-5.1); TOTAL BILIRUBIN 0.4 mg/dL (0.2-1.0); TOTAL PROTEIN 6.8 g/dL (6.4-8.2)
[2021-07-01 09:24] LABS: ABSOLUTE NEUTROPHILS 7.7 thou/uL (1.4-8.2); ANISOCYTOSIS SLIGHT; METAMYELOCYTES 1 %; MYELOCYTES 1 %
--- NOTE | 2021-07-01 09:37 | NUR ---
PATIENT NOT MEDICALLY READY TO DC TODAY. 5N TO CONTINUE TO FOLLOW.
--- NOTE | 2021-07-01 17:53 | NUR ---
MEDICATED X 1 FOR PAIN. DESATS HIGH 70S WHEN COUGHING. TAKES PT QUITE A WHILE TO RECOVER. L CHEST TUBE UP TO -20CM SUCTION PER DR. BRUMFIELD.
--- NOTE | 2021-07-01 21:43 | NUR ---
Discussed patients chest tubes with Dr. Shannon at 3076. Orders to leave both left and right chest tubes to -20 suction.
[2021-07-02] VITALS (14 sets, daily range): BP systolic 103–137; BP diastolic 66–88
[2021-07-02 05:54] LABS: HEMATOCRIT 31.2 % (42.0-52.0); HEMOGLOBIN 10.8 gm/dL (14.0-18.0); MCH 31.9 pg (26.0-34.0); MCHC 34.7 g/dL (28.0-37.0); MCV 92.1 fL (80.0-100.0); RBC 3.39 mil/uL (4.50-6.00); RDW 13.6 % (10.5-14.5); WBC 13.1 thou/uL (4.0-11.0)
[2021-07-02 06:11] LABS: ALBUMIN 2.3 g/dL (3.4-5.0); CALCIUM 8.9 mg/dL (8.5-10.1); CREATININE 0.6 mg/dL (0.7-1.3); TOTAL BILIRUBIN 0.4 mg/dL (0.2-1.0); TOTAL PROTEIN 6.8 g/dL (6.4-8.2)
--- NOTE | 2021-07-02 17:21 | NUR ---
PATIENT PROGRESSING TOWARDS THE PLAN OF CARE. PATIENT WALKED FROM BED TO TOILET FOR BMx1 TODAY.
[2021-07-03] VITALS (13 sets, daily range): BP systolic 106–140; BP diastolic 69–88
--- NOTE | 2021-07-03 17:50 | NUR ---
Patient progressing towards the plan of care. visited in person today and was updated and educated on the patient's condition and plan of care.
[2021-07-04] VITALS (12 sets, daily range): BP systolic 103–135; BP diastolic 49–94
--- NOTE | 2021-07-04 06:30 | NUR ---
Pt progressing toward goals. Has not required supplemental feeding via PEG. Down to 8 L HFC when wearing speaking valve; 35% trache mask at night. No signs or symptoms of aspiration when taking po. Voiding without difficulty. Still has frequent hacking cough; Tessalon Perls added to prn meds and seemed to have helped somewhat. Hydrocodone given for headache with adequate pain relief obtained.
--- NOTE | 2021-07-04 13:08 | NUR ---
1130-ASSUMED CARE OF PT. AT BEDSIDE,PT UP IN CHAIR.LONG CONVERSATION W BOTH.PROGRESSING TOWARD GOALS,IN REALLY GOOD SPIRITS.TRANSFER OUT OF ICU WHEN BED AVAILABLE.--VW
--- NOTE | 2021-07-04 13:37 | NUR ---
VASCULAR ACCESS NURSE ROUNDING. THIS PATIENT IS NO LONGER ON IV MEDS-RECOMEND REMOVAL OF PICC AND PERIPHERAL IV PLACEMENT TO DECREASE THE RISK OF A CENTRAL LINE RELATED BLOOD STREAM INFECTION.
--- NOTE | 2021-07-04 16:40 | NUR ---
Pt continues to make progress with PT/OT/ST. He is min assist for tx and gait 80' with rwalker. He is on a regular diet with thin liquids. Humidified air per jordyn nascimento. Chest tubes in place. CT ordered today to determine if chest tubes can be dc'd. 5N continues to follow along. Tx out of ICU soon.
[2021-07-05] VITALS (24 sets, daily range): BP systolic 106–154; BP diastolic 68–99
[2021-07-05 05:08] LABS: BASOPHILS 0.5 % (0.0-2.0); EOSINOPHILS 14.5 % (0.0-3.0); HEMATOCRIT 29.4 % (42.0-52.0); HEMOGLOBIN 10.3 gm/dL (14.0-18.0); LYMPHOCYTES 17.8 % (24.0-44.0); MCH 31.9 pg (26.0-34.0); MCHC 35.1 g/dL (28.0-37.0); MCV 90.9 fL (80.0-100.0); MONOCYTES 6.7 % (1.0-8.0); PLATELET COUNT 240 thou/uL (150-400); POLYS 60.5 % (36.0-66.0); RBC 3.24 mil/uL (4.50-6.00); RDW 13.9 % (10.5-14.5); WBC 9.9 thou/uL (4.0-11.0)
--- NOTE | 2021-07-05 17:08 | NUR ---
PATIENT PROGRESSING TOWARDS THE PLAN OF CARE EVIDENCED BY DECREASED OXYGEN REQUIREMENTS TO MAINTAIN O2 SAT>90%. DR. BRUMFIELD INFORMED THIS RN THAT HE COULD TAKE OUT THE RIGHT CHEST TUBE TOMORROW. THIS INFORMATION WAS RELAYED TO DR. ART.
[2021-07-06] VITALS (22 sets, daily range): BP systolic 105–132; BP diastolic 71–91
[2021-07-06 05:06] LABS: HEMATOCRIT 31.9 % (42.0-52.0); HEMOGLOBIN 10.9 gm/dL (14.0-18.0); MCH 31.5 pg (26.0-34.0); MCHC 34.3 g/dL (28.0-37.0); MCV 92.1 fL (80.0-100.0); RBC 3.47 mil/uL (4.50-6.00); RDW 13.7 % (10.5-14.5)
[2021-07-06 05:09] LABS: CALCIUM 8.8 mg/dL (8.5-10.1); CREATININE 0.8 mg/dL (0.7-1.3); MAGNESIUM 1.7 mg/dL (1.8-2.4); POTASSIUM 3.5 mmol/L (3.5-5.1)
--- NOTE | 2021-07-06 09:28 | NUR ---
ASSUMED CARE OF PT AT 0700 PT IS AWAKE, ALERT, CALM AND ABLE TO MAKE NEEDS KNOWN PT WAS ABLE TO GET THE THE TOILET WITH VERY LITTLE ASSISTANCE FROM ME USING HIS WALKER DR. REY NURSE AT BEDSIDE THIS MORNING AT 0830, POSSIBLE CHEST TUBE REMOVAL TODAY BUT SHE IS CHECKING WITH DR. BRUMFIELD
--- NOTE | 2021-07-06 13:11 | NUR ---
CONSUELO CARBONE, TERMITE EXTERMINATOR IN TO SEE. PLAN IS TO PULL RT CT. ATIVAN GIVEN PER PT'S REQUEST IN PREP OF CT REMOVAL. AT BEDSIDE.--VW
[2021-07-07] VITALS (16 sets, daily range): BP systolic 103–129; BP diastolic 67–90
[2021-07-07 05:09] LABS: CALCIUM 8.4 mg/dL (8.5-10.1); CREATININE 0.7 mg/dL (0.7-1.3); MAGNESIUM 1.5 mg/dL (1.8-2.4); POTASSIUM 3.3 mmol/L (3.5-5.1)
[2021-07-07 05:22] LABS: HEMATOCRIT 28.6 % (42.0-52.0); HEMOGLOBIN 10.2 gm/dL (14.0-18.0); MCH 32.4 pg (26.0-34.0); MCHC 35.5 g/dL (28.0-37.0); MCV 91.3 fL (80.0-100.0); RBC 3.13 mil/uL (4.50-6.00); RDW 13.9 % (10.5-14.5); WBC 11.8 thou/uL (4.0-11.0)
--- NOTE | 2021-07-07 09:25 | NUR ---
ASSUMED CARE OF PT AT 0700 PTS AT BEDSIDE AT [address] BRUMFIELD CALLED AT 0700 AND ORDERED AND IR PIGTAIL CATH PLACEMENT SPOKE TO IR AT 0830 AND THEY INDICATED THAT THEY ARE GOING TO TRY TO GET HIM IN AROUND 11, SO DO NOT FEED HIM BUT HE IS OK TO HAVE MEDS
--- NOTE | 2021-07-07 17:18 | NUR ---
Case discussed in team rounds. Pt is progressing. Down to IR today for left chest tube replacement. SX recommended downsizing pt's trach. He contines to make progress with Pt/Ot/St. O2 at night. Will reassess with the care team next week in terms of rehab options. Pt is anxious to be able to go home at some point soon. Will follow.
[2021-07-08] VITALS (21 sets, daily range): BP systolic 98–120; BP diastolic 59–81
[2021-07-08 06:02] LABS: HEMATOCRIT 27.3 % (42.0-52.0); HEMOGLOBIN 9.6 gm/dL (14.0-18.0); MCH 32.4 pg (26.0-34.0); MCHC 35.4 g/dL (28.0-37.0); MCV 91.7 fL (80.0-100.0); RBC 2.97 mil/uL (4.50-6.00); RDW 13.6 % (10.5-14.5); WBC 10.3 thou/uL (4.0-11.0)
[2021-07-08 06:23] LABS: CALCIUM 8.3 mg/dL (8.5-10.1); CREATININE 0.7 mg/dL (0.7-1.3); MAGNESIUM 1.7 mg/dL (1.8-2.4); POTASSIUM 3.2 mmol/L (3.5-5.1)
--- NOTE | 2021-07-08 13:00 | NUR ---
Dr. Shannon here, update given. States trach would be changed out by surgury.
[2021-07-08 16:27] LABS: MAGNESIUM 1.4 mg/dL (1.8-2.4); POTASSIUM 3.9 mmol/L (3.5-5.1)
[2021-07-09] VITALS (24 sets, daily range): BP systolic 99–123; BP diastolic 62–84
[2021-07-09 05:24] LABS: HEMOGLOBIN 9.9 gm/dL (14.0-18.0); MCH 32.1 pg (26.0-34.0); MCHC 35.3 g/dL (28.0-37.0); MCV 90.7 fL (80.0-100.0); RBC 3.08 mil/uL (4.50-6.00); RDW 13.6 % (10.5-14.5); WBC 8.7 thou/uL (4.0-11.0)
[2021-07-09 05:53] LABS: CALCIUM 8.8 mg/dL (8.5-10.1); CREATININE 0.7 mg/dL (0.7-1.3); MAGNESIUM 1.6 mg/dL (1.8-2.4)
[2021-07-10] VITALS (9 sets, daily range): BP systolic 104–135; BP diastolic 65–90
--- NOTE | 2021-07-10 18:32 | NUR ---
Pt inner cannula of trach changed by Dr. Bentley around 11am at bedside. Patient's left chest tube no 1 was removed by ACCOUNTS PAYABLE REPRESENTATIVE Kerline of . Pt's head of bed flat for an hour and chest xray obtained after the chest tube removal. pt walked 200 ft in the unit with the help of PT. Patient requiring 5L NC currently. Pt progressing towards goals.
[2021-07-11 00:43] VITALS: BP 115/73
[2021-07-11 02:43] VITALS: BP 114/79
[2021-07-11 04:43] VITALS: BP 125/78
--- NOTE | 2021-07-11 05:21 | NUR ---
PT HAS BEEN RESTING IN NO ACUTE DISTRESS.A/OX3.VSS.REMAINS ON 5LITERS PNC,NO RESP DISTRESS NOTED OR REPORTED.LEFT PIGTAIL CT TO WATERSEAL,NO AIRLEAK.NO C/O CHEST PAIN OR SHORTNESS OF BREATH.PT LOOKING FORWARD TO GOING HOME SOON.PT DENIES ANY NEEDS THIS AM.PT PROGRESSING TOWARDS DISCHARGE GOALS.
[2021-07-11 06:03] VITALS: BP 107/70
--- NOTE | 2021-07-11 16:33 | NUR ---
1400-ASSUMED CARE OF PT.--VW 1530-LT CHEST TUBE REMOVED W/O PROBLEM BY LUDY GARCIA P.APriti PT NAYA WELL DESPITE BEING ANXIOUS.INSTRUCETED ON BEDREST X 1HR.--VW 1630-RESTING COMF IN BED. NO SOB OR RESP DIFFICULTIES. PCXR PENDING.--VW
--- NOTE | 2021-07-11 16:54 | NUR ---
CARE TEAM INDICATED PT PT IS PROGRESSING TOWARD GOAL OF RETURNING HOME. CM MET WITH PT AND SPOSUE AT BEDSIDE THIS DAY. PT WAS A&O X4. CM ROLE INTRODUCED. CM INDICATED THAT LOOKED LIKE PT WOULD BE NEEDING TRACH SULLPIES AND O2 UPON DC. HE WAS AGREEABLE WITH REFERRAL BEING SENT TO [facility]. NAT LOOKING TO [facility] IF THEY CAN PROVIDE. PT AND SPOUSE AWARE THAT SUPPLIES WOULD BE VOUCHERED. CM TO ASK IF [facility] CAN PROVIDE SOME [facility] VISITS. CM FOLLOWING.
[2021-07-11 17:14] VITALS: BP 112/71
[2021-07-12 08:27] VITALS: BP 112/76
[2021-07-12 15:09] VITALS: BP 120/74
[2021-07-12 16:28] VITALS: BP 120/74
--- NOTE | 2021-07-12 17:20 | NUR ---
[facility] ct working on home o2 coverage/trach supplies/suction setup for dc home Friday 07/14 with spouse. They are working coverage per the Cares Act/HERS program. Pt is using 1-2 liters at rest and 4-6 liters with activity. Trach is capped all the time and being switched from #6 to size 4 for dc. has been trained on care for both the trach and peg but hoping the peg can be dc'd prior to dc. Will need exercise ox per RT. Luis fofana aware of need for 2-3 margoth RN visits at home. Pt is eating and taking meds po. He is up with therapy, no assistive device. Spoke with who is checking with the [facility] for a pcp appt, plan B is [employer]. [facility] entered per her request. Godengo/Sazneo and ilya $4 list discussed. She is also going to try and put him on her ins plan as soon as he is eligble for open enrollment. They will f/u with ENT for decannulation as an outpt. They have one step to enter the home and he can stay on the main level. Dc plan is home on Saturday. She has him scheduled for his first covid vaccine on 07-21-21. Support provided. Will confirm o2 order/margoth hh visits tomorrow.
[2021-07-12 19:31] VITALS: BP 124/85
[2021-07-13 00:13] VITALS: BP 103/76
[2021-07-13 06:05] VITALS: BP 119/82
[2021-07-13 07:19] VITALS: BP 122/80
--- NOTE | 2021-07-13 07:33 | NUR ---
ASSUMED PT CARE AT 1900, ALERT AND ORIENTED, AT BEDSIDE, DENIES PAIN OR SOA, PT REMAINED ON 3.5 L OF O2 VIA NASAL CANULLA, ASSESSMENTS CHARTED, VSS, NO DISTRESS NOTED, REPORT GIVRN TO DAY RN
[2021-07-13 11:00] VITALS: BP 124/91
[2021-07-13 15:11] VITALS: BP 123/83
--- NOTE | 2021-07-13 17:46 | NUR ---
ASSUMED PT CARE THIS MORNING. PT A&OX4 AND COMMUNICATING NEEDS TO STAFF APPROPRIATLEY. PT SHAVED AND SHOWERED THIS MORNING WITH ASSISTANCE FROM STAFF AND FAMILY. PT BECAME TACHYCARDIAC WHILE SHAVING. ONE DOSE OF IV METOPROLOL WAS GIVEN. PT TOLERATED WELL AND VITAL SIGNS RETURNED TO NORMAL. PT CONSUMED 100% OF SNACKS AND MEALS. PT DENIED NAUSEA/VOMITING. PT AMBULATES AND VOIDS INDEPENDENTLY. PT WAS GIVEN AN INCENTIVE SPIROMETER THIS AFTERNOON AND PT EDUCATION ON PROPER USE WAS PROVIDED.
[2021-07-13 21:03] VITALS: BP 114/65
[2021-07-14 04:15] LABS: HEMATOCRIT 30.9 % (42.0-52.0); HEMOGLOBIN 10.5 gm/dL (14.0-18.0); MCH 31.3 pg (26.0-34.0); MCHC 34.1 g/dL (28.0-37.0); MCV 91.7 fL (80.0-100.0); RBC 3.37 mil/uL (4.50-6.00); WBC 11.4 thou/uL (4.0-11.0)
--- NOTE | 2021-07-14 04:46 | NUR ---
assumed pt care at 1900. alert and orientedx4, denies pain or soa, sr on tele, denies any distress, assessments as charted, meds given as per emar, pt progressing well towards discharge, plan for discharge home today
[2021-07-14 05:00] LABS: CALCIUM 8.5 mg/dL (8.5-10.1); CREATININE 0.6 mg/dL (0.7-1.3); MAGNESIUM 1.8 mg/dL (1.8-2.4); POTASSIUM 4.7 mmol/L (3.5-5.1)
[2021-07-14 05:28] VITALS: BP 123/81
[2021-07-14 07:10] VITALS: BP 113/79
[2021-07-14 09:09] VITALS: BP 120/74
--- NOTE | 2021-07-14 09:12 | NUR ---
Home o2/trach supplies have been ordered per [facility]. They have the script and are getting cares act coverage for 3 months of coverage. Their liason visited with the pt at bedside yesterday to provide education. The liason will deliever a portable tank this morning for the ride home today. Peg to be dc'd this am. has been trained on trach care. No other dme indicated at this time. Luis has agreed to provide 2 HH RN visits per [facility]oth to help get his settled in at home. is working on f/u appt at the [facility] or [facility]. She will pickup meds today at [facility]. She is also talking with her employer about getting him on her ins plan for future care. ENT to see as an outpt and remove trach in 1-2 weeks. Pt's to arrange this appt along with pulm f/u. Pt is up ad concepción and eating normal diet. DC plan is home today with HH.
[2021-07-14 11:05] VITALS: BP 115/78
[2021-07-14] MEDS ORDERED: SEROQUEL 25 MG25 M1 PO (15:01)
[2021-07-14] MEDS ORDERED: IPRAT-ALBUT 0.5-3 ML INH (15:01)
[2021-07-14] MEDS ORDERED: LEXAPRO 10 MG T10 M1 PO (15:01)
[2021-07-14] MEDS ORDERED: LORAZEPAM 1 MG T1 MG PO (15:02)
[2021-07-14] MEDS ORDERED: PEPCID20 MG PO (15:02)
[2021-07-14] MEDS ORDERED: CEPHALEXIN500 MG PO (15:05)
[2021-07-14 15:49] VITALS: BP 120/74
[2021-07-14 15:50] VITALS: BP 122/87
--- NOTE | 2021-07-14 16:26 | NUR ---
ASSUMED PT CARE THIS MORNING. PT A&OX4 AND COMMUNICATING NEEDS TO STAFF APPROPRIATELY. PT AMBULATED INDEPENDENTLY AND VOIDED PER URINAL. PT HAD SOME ANXIETY THROUGHOUT THE SHIFT THAT WAS WELL MANAGED WITH PO MEDICATION. PT HAD A GOOD APPETITE AND CONSUMED 100% OF MEALS AND SNACKS. PT HAD GOOD URINE OUTPUT. PT WAS ASSISTED IN PACKING THEIR BELONGINGS. DC INSTRUCTIONS WERE REVIEWED WITH THE PT AND FAMILY. QUESTIONS INVITED AND ADDRESSED. PT WAS SENT HOME WITH THEIR BELONGINGS TO THE CARE OF FAMILY. IV AND TELE MONITORING WERE DISCONTINUED PRIOR TO DC.
== END 2021-07-14 17:02 | disposition home health service (06) | DRG 4 ==
LOC: ER 08:20 → EROBS 11:49 → ICU 05-14 02:16 → 2N 07-12 18:32
PROVIDERS: Anesthesiology; Emergency Medicine; Hospitalist; Internal Medicine; Internal Medicine Pulmonary Disease; Nurse Practitioner Family; Pediatrics; Physician Assistant; Specialist; ADMIT Hospitalist; ATTEND Hospitalist
PROC: XW033E5 Introduction of Remdesivir Anti-infective into Peripheral Vein, Percutaneous Approach, New Technology Group 5 (ICD-10-PCS; principal; 2021-05-13)
PROC: 5A09557 Assistance with Respiratory Ventilation, Greater than 96 Consecutive Hours, Continuous Positive Airway Pressure (ICD-10-PCS; 2021-05-14)
PROC: 5A0935A Assistance with Respiratory Ventilation, Less than 24 Consecutive Hours, High Flow/Velocity Cannula (ICD-10-PCS; 2021-05-26)
PROC: 5A0935A Assistance with Respiratory Ventilation, Less than 24 Consecutive Hours, High Flow/Velocity Cannula (ICD-10-PCS; 2021-05-27)
PROC: 5A0935A Assistance with Respiratory Ventilation, Less than 24 Consecutive Hours, High Flow/Velocity Cannula (ICD-10-PCS; 2021-05-28)
PROC: 5A0935A Assistance with Respiratory Ventilation, Less than 24 Consecutive Hours, High Flow/Velocity Cannula (ICD-10-PCS; 2021-05-30)
PROC: 5A0935A Assistance with Respiratory Ventilation, Less than 24 Consecutive Hours, High Flow/Velocity Cannula (ICD-10-PCS; 2021-06-02)
PROC: 5A1955Z Respiratory Ventilation, Greater than 96 Consecutive Hours (ICD-10-PCS; 2021-06-05)
PROC: 0DH68UZ Insertion of Feeding Device into Stomach, Via Natural or Artificial Opening Endoscopic (ICD-10-PCS; 2021-06-05)
PROC: 0B110F4 Bypass Trachea to Cutaneous with Tracheostomy Device, Open Approach (ICD-10-PCS; 2021-06-05)
PROC: 0W9B30Z Drainage of Left Pleural Cavity with Drainage Device, Percutaneous Approach (ICD-10-PCS; 2021-06-05)
PROC: 0W9930Z Drainage of Right Pleural Cavity with Drainage Device, Percutaneous Approach (ICD-10-PCS; 2021-06-08)
PROC: 02HV33Z Insertion of Infusion Device into Superior Vena Cava, Percutaneous Approach (ICD-10-PCS; 2021-06-12)
PROC: 5A09357 Assistance with Respiratory Ventilation, Less than 24 Consecutive Hours, Continuous Positive Airway Pressure (ICD-10-PCS; 2021-06-18)
PROC: 5A09357 Assistance with Respiratory Ventilation, Less than 24 Consecutive Hours, Continuous Positive Airway Pressure (ICD-10-PCS; 2021-06-19)
PROC: 5A09357 Assistance with Respiratory Ventilation, Less than 24 Consecutive Hours, Continuous Positive Airway Pressure (ICD-10-PCS; 2021-06-22)
PROC: 5A0935A Assistance with Respiratory Ventilation, Less than 24 Consecutive Hours, High Flow/Velocity Cannula (ICD-10-PCS; 2021-06-22)
PROC: 5A09357 Assistance with Respiratory Ventilation, Less than 24 Consecutive Hours, Continuous Positive Airway Pressure (ICD-10-PCS; 2021-06-25)
PROC: 5A09357 Assistance with Respiratory Ventilation, Less than 24 Consecutive Hours, Continuous Positive Airway Pressure (ICD-10-PCS; 2021-06-26)
PROC: 5A0935A Assistance with Respiratory Ventilation, Less than 24 Consecutive Hours, High Flow/Velocity Cannula (ICD-10-PCS; 2021-07-04)
PROC: 5A0935A Assistance with Respiratory Ventilation, Less than 24 Consecutive Hours, High Flow/Velocity Cannula (ICD-10-PCS; 2021-07-05)
PROC: 5A0935A Assistance with Respiratory Ventilation, Less than 24 Consecutive Hours, High Flow/Velocity Cannula (ICD-10-PCS; 2021-07-07)
PROC: 5A0935A Assistance with Respiratory Ventilation, Less than 24 Consecutive Hours, High Flow/Velocity Cannula (ICD-10-PCS; 2021-07-08)
PROC: 5A0935A Assistance with Respiratory Ventilation, Less than 24 Consecutive Hours, High Flow/Velocity Cannula (ICD-10-PCS; 2021-07-09)
PROC: 5A0935A Assistance with Respiratory Ventilation, Less than 24 Consecutive Hours, High Flow/Velocity Cannula (ICD-10-PCS; 2021-07-13)
DX: A41.89 Other specified sepsis (principal); U07.1 COVID-19; J12.82 Pneumonia due to coronavirus disease 2019; J80 Acute respiratory distress syndrome; G92.9 Unspecified toxic encephalopathy; J15.211 Pneumonia due to Methicillin susceptible Staphylococcus aureus; N17.9 Acute kidney failure, unspecified; J93.9 Pneumothorax, unspecified; G72.81 Critical illness myopathy; R65.20 Severe sepsis without septic shock; D69.6 Thrombocytopenia, unspecified; N18.30 Chronic kidney disease, stage 3 unspecified; E87.5 Hyperkalemia; D64.9 Anemia, unspecified; J98.8 Other specified respiratory disorders; T70.29XA Other effects of high altitude, initial encounter; F41.9 Anxiety disorder, unspecified; X58.XXXA Exposure to other specified factors, initial encounter; K21.9 Gastro-esophageal reflux disease without esophagitis; R13.10 Dysphagia, unspecified; J98.2 Interstitial emphysema; Z88.0 Allergy status to penicillin
CPT/HCPCS: 10078; 10081; 10203; 50101; 50386; 50403; 50550; 56525; 58585; 62110; 62900